=== PATIENT | female | born 1980 | race Caucasian/White ===

== ENCOUNTER 2017-06-29 18:29 | Emergency (ER) | payer BC, MEDICAID, SELFPAY ==
[2017-06-29 18:50] VITALS: BP 91/65; PULSE 65; RESP 18; TEMP 36.9; O2SAT 97; BMI 24.3
--- NOTE | 2017-06-29 19:07 | CT_ITS ---
CT abdomen pelvis wo con CLINICAL INDICATION: Right flank pain, history of kidney stones ITS.REASON: kidney stone ORDERING PHYSICIAN: Negro Phelan MD PATIENT AGE: 36 years COMPARISON: 10/06/2015 TECHNIQUE: Axial images obtained with sagittal and coronal reformats. PROCEDURE: Oral Contrast: None IV Contrast: None . FINDINGS: There is no acute finding in the lower chest. There is a subpleural 4 mm nodular opacity in the left lower lobe nonspecific too small to characterize. Abdomen: The liver, gallbladder, spleen, adrenal glands, and pancreas are unremarkable. No hydronephrosis or obstructing renal or ureteral calculi evident. No urinary bladder calculi. Multiple pelvic phleboliths are present. No intestinal obstruction or free air. Pelvis: No evidence of appendicitis or diverticulitis. No pelvic mass or abnormal fluid collection or focal inflammatory change. Gas is present in the vagina from tampon . No acute bony anomalies. IMPRESSION: No acute abdominal or pelvic findings.
--- NOTE | 2017-06-29 19:17 | HMH.EDGENADL ---
ED Disposition Clinical Impression: Flank pain Disposition: Home, Self-Care Condition on Discharge: Good Instructions: DI for Flank Pain Prescriptions: Hydrocod/Acet 5/325 mg [[place] 5/325mg tablet] 1 each PO Q6HP PRN #10 tab PRN Reason: Moderate Pain Ondansetron [Zofran 4mg ODT] 4 mg PO Q6H PRN #10 tab.rapdis PRN Reason: Moderate Pain Referrals: Marine Pate APRN [Primary Care Provider] - - Critical Care Critical Care Time: No Attestation: On 06/29/17, the high probability of a clinically significant, sudden or life threatening deterioration of the following system(s) required my full and direct attention, intervention and personal management. The time I documented below is in addition to time spent performing reported procedures but includes the following listed in this critical care notation. Medical Decision Making - Medical Records MR Comment: 2009 scan is come back no acute intra-abdominal abnormality detected. Obstipation is passing a small stone she has got trace blood in her urine, states it feels like previous kidney stones Vital Signs: 06/29/17 18:50 06/29/17 19:30 Temperature 98.5 F Temperature Source Oral Pulse Rate [Left Radial] 65 71 Respiratory Rate 18 Blood Pressure [Left Arm] 91/65 97/65 Blood Pressure Mean [Left Arm] 73 75 Blood Pressure Source [Left Arm] Automatic Cuff Automatic Cuff Blood Pressure Position [Left Arm] Sitting Sitting 02 Sat by Pulse Oximetry 97 100 Oxygen Delivery Method Room Air - Lab Data Lab Results 06/29/17 19:11: Urine Color Yellow, Urine Appearance Sl cloudy, Urine pH 7.5, Ur Specific [place] 1.020, Urine Protein Negative, Urine Glucose (UA) Negative, Urine Ketones Negative, Urine Blood Trace-i, Urine Nitrate Negative, Urine Bilirubin Negative, Urine Urobilinogen 1.0, Ur Leukocyte Esterase Negative, Urine RBC 3-5, Urine WBC 3-5, Ur Squamous Epith Cells 10-20, Amorphous Sediment 2+, Urine Bacteria 3+, Urine Mucus 4+ 06/29/17 19:11: Urine HCG, Qual Negative 06/29/17 19:20: WBC 8.2, RBC 4.42, Hgb 12.7, Hct 39.5, MCV 89.3, MCH 28.8, MCHC 32.2, RDW 12.5, Plt Count 240, MPV 8.2, Neut % (Auto) 54.1, Lymph % (Auto) 36.0, [place] % (Auto) 6.2, Eos % (Auto) 3.0, Baso % (Auto) 0.7, Neut # (Auto) 4.4, Lymph # (Auto) 2.9, [place] # (Auto) 0.5, Eos # (Auto) 0.3, Baso # (Auto) 0.1 06/29/17 19:20: Sodium 139, Potassium 3.4 L, Chloride 104, Carbon Dioxide 27, Anion Gap 11.4, BUN 13, Creatinine 0.66, Estimated Creat Clear 135, Estimated GFR 101, Est GFR ( Amer) 123, Glucose 82, Calcium 8.6, Total Bilirubin 0.2, AST 13 L, ALT 26, Alkaline Phosphatase 61, Total Protein 7.3, Albumin 3.9, Globulin 3.4 H, Albumin/Globulin Ratio 1.1 Result diagrams: 06/29/17 19:20 06/29/17 19:20 Orders (Tests/Meds): ED MEDICATIONS Generic Name Dose Route Start Last Admin Trade Name Freq PRN Reason Stop Dose Admin Sodium Chloride 1,000 mls @ 999 mls/hr 06/29/17 19:30 06/29/17 19:31 Sod Chlor 0.9% 1000ml Bag IV 06/29/17 20:30 999 mls/hr .Q1H1M KVNG Administration Discontinued Medications Generic Name Dose Route Start Last Admin Trade Name Freq PRN Reason Stop Dose Admin Morphine Sulfate 4 mg 06/29/17 19:19 06/29/17 19:31 Morphine 4mg/Ml Syringe IV 06/29/17 19:20 4 mg ONCE ONE Administration Ondansetron HCl 4 mg 06/29/17 19:19 06/29/17 19:31 Zofran 4mg/2ml Vial IV 06/29/17 19:20 4 mg ONCE ONE Administration ORDERS Category Date Time Status CT abdomen pelvis wo con Stat Cat Scan 06/29/17 19:07 Taken Urine Culture Stat Micro 06/29/17 19:11 Received - Yasir Inquiry Pt receiving controlled substance: Yes Yasir was queried for this patient: Yes ([id number]) Reference #:: [id number] Risks and benefits of using a controlled substance: were discussed with pt by me General Adult HPI - General Chief complaint: PAIN Stated complaint: kidney stone Mode of Arrival: Ambulatory Limitations: No Limitations Description of Sympto
[2017-06-29 19:18] LABS: Microscopic, Urine URINE MICROSCOPIC (MICROSCOPIC)
[2017-06-29 19:20] LABS: Appearance,Urine SL CLOUDY (Clear); Bilirubin,Urine Negative (Negative); Blood, Urine TRACE-I (Negative); Color,Urine YELLOW (Yellow); Glucose,Urine (UA) Negative (Negative); Ketones,Urine Negative (Negative); Leukocyte Esterase,Urine Negative (Negative); Nitrate,Urine Negative (Negative); PH,Urine 7.5 (5.0-8.5); Protein,Urine Negative (Negative)
--- NOTE | 2017-06-29 19:20 | ED_ITS ---
ED Disposition Clinical Impression: Flank pain Disposition: Home, Self-Care Condition on Discharge: Good Instructions: DI for Flank Pain Prescriptions: Hydrocod/Acet 5/325 mg [[place] 5/325mg tablet] 1 each PO Q6HP PRN #10 tab PRN Reason: Moderate Pain Ondansetron [Zofran 4mg ODT] 4 mg PO Q6H PRN #10 tab.rapdis PRN Reason: Moderate Pain Referrals: Marine Pate APRN [Primary Care Provider] - - Critical Care Critical Care Time: No Attestation: On 06/29/17, the high probability of a clinically significant, sudden or life threatening deterioration of the following system(s) required my full and direct attention, intervention and personal management. The time I documented below is in addition to time spent performing reported procedures but includes the following listed in this critical care notation. Medical Decision Making - Medical Records MR Comment: 2009 scan is come back no acute intra-abdominal abnormality detected. Obstipation is passing a small stone she has got trace blood in her urine, states it feels like previous kidney stones Vital Signs: 06/29/17 18:50 06/29/17 19:30 Temperature 98.5 F Temperature Source Oral Pulse Rate [Left Radial] 65 71 Respiratory Rate 18 Blood Pressure [Left Arm] 91/65 97/65 Blood Pressure Mean [Left Arm] 73 75 Blood Pressure Source [Left Arm] Automatic Cuff Automatic Cuff Blood Pressure Position [Left Arm] Sitting Sitting 02 Sat by Pulse Oximetry 97 100 Oxygen Delivery Method Room Air - Lab Data Lab Results 06/29/17 19:11: Urine Color Yellow, Urine Appearance Sl cloudy, Urine pH 7.5, Ur Specific [place] 1.020, Urine Protein Negative, Urine Glucose (UA) Negative, Urine Ketones Negative, Urine Blood Trace-i, Urine Nitrate Negative, Urine Bilirubin Negative, Urine Urobilinogen 1.0, Ur Leukocyte Esterase Negative, Urine RBC 3-5, Urine WBC 3-5, Ur Squamous Epith Cells 10-20, Amorphous Sediment 2+, Urine Bacteria 3+, Urine Mucus 4+ 06/29/17 19:11: Urine HCG, Qual Negative 06/29/17 19:20: WBC 8.2, RBC 4.42, Hgb 12.7, Hct 39.5, MCV 89.3, MCH 28.8, MCHC 32.2, RDW 12.5, Plt Count 240, MPV 8.2, Neut % (Auto) 54.1, Lymph % (Auto) 36.0 , [place] % (Auto) 6.2, Eos % (Auto) 3.0, Baso % (Auto) 0.7, Neut # (Auto) 4.4, Lymph # (Auto) 2.9, [place] # (Auto) 0.5, Eos # (Auto) 0.3, Baso # (Auto) 0.1 06/29/17 19:20: Sodium 139, Potassium 3.4 L, Chloride 104, Carbon Dioxide 27, Anion Gap 11.4, BUN 13, Creatinine 0.66, Estimated Creat Clear 135, Estimated GFR 101, Est GFR ( Amer) 123, Glucose 82, Calcium 8.6, Total Bilirubin 0.2, AST 13 L, ALT 26, Alkaline Phosphatase 61, Total Protein 7.3, Albumin 3.9, Globulin 3.4 H, Albumin/Globulin Ratio 1.1 Result diagrams: 06/29/17 19:20 06/29/17 19:20 Orders (Tests/Meds): ED MEDICATIONS Generic Name Dose Route Start Last Admin Trade Name Freq PRN Reason Stop Dose Admin Sodium Chloride 1,000 mls @ 999 mls/hr 06/29/17 19:30 06/29/17 19:31 Sod Chlor 0.9% 1000ml Bag IV 06/29/17 20:30 999 mls/hr .Q1H1M KVNG Administration Discontinued Medications Generic Name Dose Route Start Last Admin Trade Name Freq PRN Reason Stop Dose Admin Morphine Sulfate 4 mg 06/29/17 19:19 06/29/17 19:31 Morphine 4mg/Ml Syringe IV 06/29/17 19:20 4 mg ONCE ONE Administration Ondansetron HCl 4 mg 06/29/17 19:19 06/29/17 19:31 Zofran 4mg/2ml Vial IV 06/29/17 19:20 4 mg
[2017-06-29 19:30] VITALS: BP 97/65; PULSE 71; O2SAT 100
[2017-06-29 19:34] LABS: Basophils # 0.1 K/mm3 (0-0.2); Basophils % 0.7 % (0.1-2.0); Eosinophils # 0.3 K/mm3 (0.0-0.4); Hematocrit 39.5 % (37.0-47.0); Hemoglobin 12.7 g/dL (12.2-16.2); Lymphocytes # 2.9 K/mm3 (0.7-4.5); Mean Corpuscular HGB Conc 32.2 g/dL (31.8-35.4); Mean Corpuscular Hemoglobin 28.8 pg (27.0-31.2); Mean Corpuscular Volume 89.3 fl (81-99); Mean Platelet Volume 8.2 fl (7.4-10.4); Monocytes # 0.5 K/mm3 (0.1-1.0); Monocytes % 6.2 % (1.7-9.3); Neutrophils # 4.4 K/mm3 (1.8-7.8); Neutrophils % 54.1 % (37.0-80.0); Platelet Count 240 K/mm3 (142-424); Red Blood Count 4.42 M/mm3 (4.20-5.40); Red Cell Distribution Width 12.5 % (11.5-17.5); White Blood Count 8.2 K/mm3 (4.8-10.8)
[2017-06-29 19:35] LABS: Urine Pregnancy, HCG Qual. Negative (Negative)
[2017-06-29 19:47] LABS: Amorphous Sediment,Urine 2+ /lpf; Bacteria,Urine 3+ /lpf; Mucus,Urine 4+ /lpf
[2017-06-29 19:52] LABS: Alanine Aminotransferase 26 U/L (12-78); Albumin Level 3.9 gm/dL (3.4-5.0); Albumin/Globulin Ratio 1.1 (1.1-1.8); Alkaline Phosphatase 61 U/L (46-116); Anion Gap 11.4 mEq/L (5-15); Aspartate Amino Transferase 13 U/L (15-37); Bilirubin,Total 0.2 mg/dL (0.2-1.0); Blood Urea Nitrogen 13 mg/dL (7-18); Calcium 8.6 mg/dL (8.5-10.1); Carbon Dioxide 27 mmol/L (21.0-32.0); Chloride 104 mmol/L (98-107); Creatinine Clearance Estimated 135 mL/min (0-300); Creatinine,Serum 0.66 mg/dL (0.55-1.02); Estimated Glomerular Filt Rate 101 ml/min (>60); GFR (African American) 123 ML/MIN (>60); Globulin 3.4 gm/dl (1.3-3.2); Glucose 82 mg/dL (74-106); Potassium 3.4 mmoL/L (3.5-5.1); Sodium 139 mmol/L (136-145); Total Protein,Serum 7.3 gm/dL (6.4-8.2)
[2017-06-29 20:25] VITALS: BP 137/73; PULSE 85; RESP 16; TEMP 37.2; O2SAT 99
== END 2017-06-29 20:34 | disposition home or self-care (01) ==
PROVIDERS: Emergency Provider Emergency Medicine; Family Provider Family Medicine; PCP Nurse Practitioner
DX: R10.31 Right lower quadrant pain (principal); Z87.442 Personal history of urinary calculi; F17.210 Nicotine dependence, cigarettes, uncomplicated; Z88.0 Allergy status to penicillin; Z88.6 Allergy status to analgesic agent
CPT/HCPCS: 74176; 80053; 81001; 81025; 85025; 87086; 87088; 87186; 96365; 96375; 99282; J2405

== ENCOUNTER → 2017-10-20 08:10 | Outpatient (CLI) | payer BC, MEDICAID, SELFPAY ==
--- NOTE | 2017-10-20 08:13 | US_ITS ---
US abdomen limited History:Right upper quadrant pain Ordering Physician:Marine Pate Patient Age: 37 years Comparison:None Findings: Pancreas:Unremarkable. No obvious mass or abnormal fluid collection. No ductal dilatation Liver:No focal liver lesions demonstrated. Homogeneous echogenicity. No intrahepatic biliary ductal dilatation evident Right Kidney:Unremarkable. Normal size and echogenicity. No hydronephrosis Gallbladder:No gallstones, gallbladder wall thickening, pericholecystic fluid, or biliary dilatation. Impression:Negative gallbladder/right upper quadrant ultrasound
== END ==
PROVIDERS: Family Provider Family Medicine; PCP Nurse Practitioner; Visit Provider Nurse Practitioner
DX: R10.9 Unspecified abdominal pain (principal)
CPT/HCPCS: 76705

== ENCOUNTER → 2017-11-06 10:13 | Outpatient (CLI) | payer BC, MEDICAID, SELFPAY ==
--- NOTE | 2017-11-06 10:18 | NM_ITS ---
HEPATOBILIARY SCAN WITH FATTY MEAL/ENSURE ORDERING PHYSICIAN : Smith Ash PATIENT AGE: 37 years GENDER: Female HISTORY: Right upper quadrant pain and nausea Following 8.27 millicuries Tc Choletec, images of the RUQ were obtained. There is prompt uptake of radionuclide by the liver which is grossly unremarkable. Small bowel is visualized. This initial portion of the study is normal. The gallbladder was allowed to fill out to 60 minutes. Fatty meal/1 can of ensure over administered, with then imaging performed over 60 minutes minutesThereafter. The obtain data was analyzed and reveals a 85% % gallbladder ejection fraction (normal greater than 50%; borderline 35-50%). This reflects normal value. Adequate contraction. . Visual inspection which supports that there is adequate contraction of the gallbladde certainly over 50% r. IMPRESSION: Normal functioning gallbladder. 85 % gallbladder ejection fraction, following fatty meal. No pain with fatty meal.
== END ==
PROVIDERS: Family Provider Family Medicine; PCP Nurse Practitioner; Visit Provider Internal Medicine
DX: R10.11 Right upper quadrant pain (principal)
CPT/HCPCS: 78227; A9537

== ENCOUNTER → 2019-10-20 16:14 | Outpatient (CLI) | payer BC, SELFPAY ==
--- NOTE | 2019-10-20 16:20 | XR_ITS ---
PROCEDURE: XR CHEST 2V CLINICAL HISTORY: COUGH, TOBACCO ABUSE, SHORTNESS OF BREATH COMPARISON: CXR CHEST(2 VIEWS-NOT PORTABLE) from 08/23/2012 FINDINGS: The cardiomediastinal silhouette and pulmonary vascularity are within normal limits. The lungs are clear without infiltrates, suspicious nodules, or pleural effusions. There is slight increased density in the right CP angle. This could be due to attenuation from overlying soft tissues versus small effusion No acute bony abnormalities. IMPRESSION: No definite acute finding. Minimal increased density right CP angle which could be due to small effusion versus overlying soft tissue attenuation Dictated by: Elliott Adame MD 10/20/2019 22:27 Electronically signed by Elliott Adame MD in [place] 10/20/2019 22:27
== END ==
PROVIDERS: PCP Nurse Practitioner Family; Visit Provider Nurse Practitioner Family
DX: R06.02 Shortness of breath (principal); R05 Cough; Z72.0 Tobacco use
CPT/HCPCS: 71046

== ENCOUNTER → 2019-11-02 09:58 | Outpatient (CLI) | payer BC, SELFPAY ==
[2019-11-02 10:30] VITALS: PULSE 77; PULSE 80
== END ==
PROVIDERS: PCP Nurse Practitioner Family; Visit Provider Nurse Practitioner Family
DX: R06.02 Shortness of breath (principal); R05 Cough; Z72.0 Tobacco use
CPT/HCPCS: 94060; 94640

== ENCOUNTER 2020-01-08 14:23 | Emergency (ER) | payer BC, SELFPAY ==
--- NOTE | 2020-01-08 14:37 | XR_ITS ---
PROCEDURE: XR CHEST 2V Referring Doctor: Kanwal Ramirez Patient Age:39Y CLINICAL HISTORY: cough cough, pt has mild copd, nausea and diarrhea started thursday , pt had ablation done 2018 COMPARISON: 10/20/2019 CXR FINDINGS: PA and lateral chest performed today and compared to 10/20/2019 nothing definitely acute with no significant change since 10/20/2019 the cardiomediastinal silhouette and pulmonary vascularity are within normal limits. The lungs are clear without infiltrates, suspicious nodules, or pleural effusions. No acute bony abnormalities. IMPRESSION: Stable chest with nothing definitely acute. Lungs clear No significant change since 10/20/2019 Dictated by: Giuseppe Cervantes MD 01/08/2020 15:00 Giuseppe Cervantes MD in [place] 01/08/2020 15:00
[2020-01-08 14:45] VITALS: BP 108/69; PULSE 95; RESP 19; TEMP 37.2; O2SAT 94; BMI 27.6
--- NOTE | 2020-01-08 14:59 | HMH.EDUTC ---
[facility] [place] Impression: Nausea vomiting and diarrhea URI (upper respiratory infection) Qualifiers: URI type: unspecified URI Qualified Code(s): J06.9 - Acute upper respiratory infection, unspecified Disposition: Home, Self-Care Condition on Discharge: Good Instructions: DI for Vomiting -- Adult, Nausea and Vomiting-Adult, Diarrhea, Preventing the Spread of Coronavirus Discharge Instructions Additional Instructions: *Monitor Temp, Over the counter Motrin or Tylenol as directed/as needed Tylenol every 4 hours and Motrin every 6 hours (as long as your family doctor has told you that you can take it) for fever or pain. and straight to ER if unable to lower temp less than 101.0 after medication given *Warm salt water gargles may help to soothe the throat *Throat Lozenges *Warm fluids like tea with honey may help to soothe the throat *Sleep elevated *Humidifier/Vaporizer *Flonase 2 sprays in each nostril daily but be aware that it may take 2-3 days before you notice improvement *You was give test for COVID 19 and was given handout for instructions for Self Isolation and Self Quarantine make sure to follow closely Call back to the [facility] in the next 48-72 hours to see if your results are back and if they are positive or negative until you get those results make sure to stay out of the public and away from other people Your throat swab was sent for culture. Those results are typically sent to your primary care. Be sure to follow up in 2-3 days with your family doctor/primary care physician if no improvement so they can review those result and treat if necessary. If you don?t have a primary care doctor, I recommend you get one but in the mean time, you will have to return to a walk in clinic Follow up IMMEDIATELY for new or worsening symptoms or no Noticeable improvement over the next 48-72 hours. 911 for difficulty breathing or swallowing Prescriptions: Ondansetron [Zofran 4mg ODT] 4 mg PO Q8HP PRN #6 tab.rapdis PRN Reason: Nausea Transmission Status: Pending to [facility] Cefdinir [Omnicef 300mg Capsule] 300 mg PO BID #20 cap Transmission Status: Pending to [facility] Referrals: Ben Dougherty MD [Primary Care Provider] - As needed Forms: Work/School Release Time of Disposition: 15:26 Medical Decision Making - Yasir Inquiry Pt receiving controlled substance: No Yasir was queried for this patient: No Vital Signs: 01/08/20 14:45 Temperature 98.9 F Temperature Source Oral Pulse Rate [Radial] 95 H Respiratory Rate 19 Blood Pressure [Right Arm] 108/69 L Blood Pressure Mean [Right Arm] 82 Blood Pressure Source [Right Arm] Automatic Cuff Blood Pressure Position [Right Arm] Sitting 02 Sat by Pulse Oximetry 94 L Oxygen Delivery Method Room Air - Lab Data Lab results reviewed: Yes: I reviewed the patient's lab results. Lab Results 01/08/20 15:00: Influenza Type A Ag Negative, Influenza Type B Ag Negative 01/08/20 15:00: Strep Scn Rapid Clinic Negative Orders (Tests/Meds): ORDERS Category Date Time Status Coronavirus [SARS-CoV-2, [place] ([place])] Stat Lab 01/08/20 14:45 Received Strep Screen Confirmation Stat Micro 01/08/20 15:00 Received Medical Decision Narrative: Patient states that she is allergic to PCN but she has taken Cefdinir before without reactions or complications [facility] [place] - General Stated complaint: virgie vomiting cough fev Time Seen by Provider: 01/08/20 14:59 Mode of Arrival: Ambulatory Source of Information: Patient Limitations: No Limitations Description of Symptoms (Recalled from Triage Doc. by RN): vomiting and diarrhea since thursday, headache, sob, weakness HEENT Symptoms (Recalled from RN notes): Yes Resp Symptoms (Recalled from RN notes): No Skin Symptoms (Recalled from RN notes): No MS Symptoms (Recalled from RN notes): No Functional Status (Recalled from RN notes): wnl - History of Present Illness Provider Complaint: Patient states that s
[2020-01-08 15:17] LABS: UTC Influenza A Antigen Negative (Negative); UTC Strep Screen (Rapid) Negative (Negative)
[2020-01-08 15:18] LABS: UTC Influenza B Antigen Negative (Negative)
[2020-01-08 15:34] VITALS: BP 108/69; PULSE 95; RESP 19; TEMP 37.2; O2SAT 94
[2020-01-09 09:55] LABS: Covid-19 Nasal PCR Sendout UK NOT DETECTED
== END 2020-01-08 15:36 | disposition home or self-care (01) ==
PROVIDERS: Emergency Provider Nurse Practitioner; PCP Family Medicine
DX: J06.9 Acute upper respiratory infection, unspecified (principal); F41.8 Other specified anxiety disorders; Z87.442 Personal history of urinary calculi; F17.210 Nicotine dependence, cigarettes, uncomplicated
CPT/HCPCS: 71046; 87804; 87880; 99202; U0003

== ENCOUNTER → 2020-02-08 16:29 | Outpatient (CLI) | payer BC, SELFPAY ==
--- NOTE | 2020-02-08 16:33 | XR_ITS ---
PROCEDURE: XR FOOT WT BEARING LT 3V CLINICAL INDICATION: pain COMPARISON: No exams were available for comparison FINDINGS: No fracture or dislocation. No lytic or blastic change. There is normal mineralization. The joint spaces are well-preserved. No significant degenerative/arthritic changes. No erosive changes evident. Other findings:None. IMPRESSION: No acute findings. Dictated by: Elliott Adame MD 02/08/2020 17:46 Elliott Adame MD in [place] 02/08/2020 17:46
--- NOTE | 2020-02-08 16:33 | XR_ITS ---
PROCEDURE: XR FOOT WT BEARING RT 3V CLINICAL INDICATION: pain COMPARISON: No exams were available for comparison FINDINGS: No fracture or dislocation. No lytic or blastic change. There is normal mineralization. The joint spaces are well-preserved. No significant degenerative/arthritic changes. No erosive changes evident. Other findings:None. IMPRESSION: No acute findings. Dictated by: Elliott Adame MD 02/08/2020 17:46 Elliott Adame MD in [place] 02/08/2020 17:46
== END ==
PROVIDERS: PCP Nurse Practitioner Family; Visit Provider Podiatrist
DX: M79.672 Pain in left foot (principal); M79.671 Pain in right foot
CPT/HCPCS: 73630

== ENCOUNTER 2020-02-11 14:29 | Emergency (ER) | payer BC, SELFPAY ==
[2020-02-11 14:30] VITALS: BMI 28.0
--- NOTE | 2020-02-11 14:31 | HMH.EDGENADL ---
ED Disposition Clinical Impression: Urolithiasis Qualifiers: Urinary calculus location: ureter Qualified Code(s): N20.1 - Calculus of ureter Abdominal pain Qualifiers: Abdominal location: right lower quadrant Qualified Code(s): R10.31 - Right lower quadrant pain Disposition: Home, Self-Care Condition on Discharge: Good Instructions: Kidney Stones -- Adult Additional Instructions: Take medications as prescribed. Follow-up with your PCP. If you have any new, changing, worsening, or concerning symptoms, come back to the emergency department. Prescriptions: Tamsulosin HCl [Flomax 0.4mg capsule] 0.4 mg PO HS 5 Days #5 cap Prescription Printed Cefdinir [Omnicef 300mg Capsule] 300 mg PO BID 7 Days #14 cap Prescription Printed Ondansetron [Zofran 4mg ODT] 4 mg PO TID PRN 3 Days #9 tab PRN Reason: Vomiting Prescription Printed Referrals: Lidia Rice APRN [Primary Care Provider] - Time of Disposition: 17:28 - Critical Care Critical Care Time: No Attestation: On 02/11/20, the high probability of a clinically significant, sudden or life threatening deterioration of the following system(s) required my full and direct attention, intervention and personal management. The time I documented below is in addition to time spent performing reported procedures but includes the following listed in this critical care notation. Medical Decision Making - Medical Records Medical records reviewed: Yes: I reviewed the patient's medical records. MR Comment: 39-year-old female presents the emergency department with with right flank and right lower quadrant pain. She arrives the ED hemodynamically stable, with reassuring vital signs, and looks well on exam. She has tenderness in the right lower quadrant, which is concerning for appendicitis, also could be a kidney stone or UTI. Will get labs and CT, treat with fluids and reassess. On reassessment, patient remains well. She states she has had relief of her pain since arrival here. CT of the abdomen pelvis read by radiology and personally reviewed, appendix does not show any signs of inflammation, no other acute findings so most likely stone. We will send her home with treatment for this and advise that she follow-up with her PCP. She was given strict return precautions and discharge instructions including follow-up for further evaluation and treatment and verbalized understanding and agreement with the plan. Safe to discharge. - Yasir Inquiry Pt receiving controlled substance: No Vital Signs: 02/11/20 14:56 02/11/20 15:13 02/11/20 16:47 Temperature 98 F Temperature Source Oral Pulse Rate [Left Radial] 110 H 92 H 76 Respiratory Rate 16 20 Blood Pressure [Right Arm] 119/73 101/58 L 118/64 Blood Pressure Mean [Right Arm] 88 72 82 Blood Pressure Source [Right Arm] Automatic Cuff Blood Pressure Position [Right Arm] Sitting Sitting Sitting 02 Sat by Pulse Oximetry 97 93 L Oxygen Delivery Method Room Air - Lab Data Lab Results 02/11/20 14:15: WBC 13.5 H, RBC 4.57, Hgb 13.9, Hct 40.9, MCV 89.6, MCH 30.4, MCHC 33.9, RDW 13.8, Plt Count 267, MPV 9.0, Neut % (Auto) 75.5, Lymph % (Auto) 18.0, [place] % (Auto) 4.8, Eos % (Auto) 1.1, Baso % (Auto) 0.7, Neut # (Auto) 10.2 H, Lymph # (Auto) 2.4, [place] # (Auto) 0.6, Eos # (Auto) 0.2, Baso # (Auto) 0.1 02/11/20 14:15: Sodium 138, Potassium 3.8, Chloride 104, Carbon Dioxide 25, Anion Gap 12.8, BUN 15, Creatinine 0.70, Estimated Creat Clear 151, Estimated GFR 93, Est GFR ( Amer) 113, Glucose 125 H, Calcium 9.6, Total Bilirubin 0.6, AST 40 H, ALT 35, Alkaline Phosphatase 76, Total Protein 7.5, Albumin 4.4, Globulin 3.1, Albumin/Globulin Ratio 1.4 02/11/20 14:15: HCG, Quant < 2 02/11/20 14:15: Serum HCG, Qual Negative 02/11/20 16:59: Urine Color Yellow, Urine Appearance Sl cloudy, Urine pH 6.5, Ur Specific [place] 1.015, Urine Protein Negative, Urine Glucose (UA) Negative, Urine Ketones Negative, Urine Blood 1+, Urine Nit
[2020-02-11 14:56] VITALS: BP 119/73; PULSE 110; RESP 16; TEMP 36.6; O2SAT 97; BMI 28.8
--- NOTE | 2020-02-11 14:59 | CT_ITS ---
PROCEDURE: CT ABDOMEN PELVIS W CON CLINICAL INDICATION: abd and flank pain, tender in RLQ Right-sided flank pain with nausea, right lower quadrant tenderness COMPARISON: CT ABDPELW/O CT ABD PELVIS W/O CONTRAST from 03/30/[address] abdomen pelvis wo con from 09/29/2017 TECHNIQUE: IV Contrast: 75ML OPTIRAY 350 Oral Contrast None Axial images obtained with sagittal and coronal reformats. All CT scans at the facility use one or more dose reduction, viz: automated exposure control, ma/kV adjustment per patient size (including targeted exams where dose is matched to indication, i.e. head), or iterative reconstruction technique. FINDINGS: LOWER THORAX: There are dependent changes in the lung bases. ABDOMEN & PELVIS: The liver, spleen, adrenal glands, pancreas, gallbladder, and kidneys have an unremarkable appearance. Contrast is present in the urinary collecting system and would obscure an underlying renal stone. No hydronephrosis. No obvious ureteral calculi. There are few small mesenteric lymph nodes in the epigastric region. No intestinal obstruction or free air. No evidence of appendicitis or diverticulitis intestinal obstruction or free air. The uterine cervix is prominent. Correlation with physical exam suggested. No pelvic fluid collection or adenopathy. No acute bony findings. IMPRESSION: No acute abdominal or pelvic findings. Prominent cervix which requires correlation with physical exam. Dictated by: Elliott Adame MD 02/12/2020 05:47 Elliott Adame MD in [place] 02/12/2020 05:47
[2020-02-11 15:13] VITALS: BP 101/58; PULSE 92
[2020-02-11 15:44] LABS: Alanine Aminotransferase 35 U/L (12-78); Albumin Level 4.4 g/dl (3.5-5.0); Albumin/Globulin Ratio 1.4 (1.1-1.8); Alkaline Phosphatase 76 U/L (38-126); Anion Gap 12.8 mEq/L (5-15); Aspartate Amino Transferase 40 U/L (14-36); Bilirubin,Total 0.6 mg/dl (0.2-1.3); Blood Urea Nitrogen 15 mg/dl (7-17); Calcium 9.6 mg/dl (8.4-10.2); Carbon Dioxide 25 mmol/L (22.0-30.0); Chloride 104 mmol/L (98-107); Creatinine Clearance Estimated 151 mL/min (50-200); Estimated Glomerular Filt Rate 93 ml/min (>60); GFR (African American) 113 ML/MIN (>60); Globulin 3.1 g/dL (1.3-3.2); Glucose 125 mg/dl (74-100); Potassium 3.8 mmoL/L (3.5-5.1); Sodium 138 mmol/L (136-145); Total Protein,Serum 7.5 g/dl (6.3-8.2)
[2020-02-11 15:47] LABS: Basophils # 0.1 K/mm3 (0-0.2); Basophils % 0.7 % (0.1-2.0); Eosinophils # 0.2 K/mm3 (0.0-0.4); Eosinophils % 1.1 % (0.1-12.0); Hematocrit 40.9 % (37.0-47.0); Hemoglobin 13.9 g/dL (12.2-16.2); Lymphocytes # 2.4 K/mm3 (0.7-4.5); Mean Corpuscular HGB Conc 33.9 g/dL (31.8-35.4); Mean Corpuscular Hemoglobin 30.4 pg (27.0-31.2); Mean Corpuscular Volume 89.6 fl (81-99); Monocytes # 0.6 K/mm3 (0.1-1.0); Monocytes % 4.8 % (1.7-9.3); Neutrophils # 10.2 K/mm3 (1.8-7.8); Neutrophils % 75.5 % (37.0-80.0); Platelet Count 267 K/mm3 (142-424); Red Blood Count 4.57 M/mm3 (4.20-5.40); Red Cell Distribution Width 13.8 % (11.5-17.5); White Blood Count 13.5 K/mm3 (4.8-10.8)
[2020-02-11 16:02] LABS: HCG,Quantitative < 2 mIU/ml (0-5.42)
[2020-02-11 16:17] LABS: HCG Qualitative, Serum Negative (Negative)
[2020-02-11 16:47] VITALS: BP 118/64; PULSE 76; RESP 20; O2SAT 93
[2020-02-11 17:10] LABS: Appearance,Urine SL CLOUDY (Clear); Bilirubin,Urine Negative (Negative); Blood, Urine 1+ (Negative); Color,Urine YELLOW (Yellow); Glucose,Urine (UA) Negative (Negative); Ketones,Urine Negative (Negative); Leukocyte Esterase,Urine Negative (Negative); Nitrate,Urine POSITIVE (Negative); PH,Urine 6.5 (5.0-8.5); Protein,Urine Negative (Negative); Specific Gravity, Urine 1.015 (1.005-1.030); Urobilinogen,Urine 0.2 EU/dl (0.2)
[2020-02-11 17:23] LABS: Bacteria,Urine 1+ /lpf; Mucus,Urine 1+ /lpf
[2020-02-11 17:38] VITALS: BP 112/64; PULSE 88; RESP 16; TEMP 36.6; O2SAT 98
== END 2020-02-11 17:39 | disposition home or self-care (01) ==
PROVIDERS: Emergency Provider Emergency Medicine; PCP Nurse Practitioner Family
DX: N20.1 Calculus of ureter (principal); F41.8 Other specified anxiety disorders; Z87.442 Personal history of urinary calculi; F17.210 Nicotine dependence, cigarettes, uncomplicated; Z88.0 Allergy status to penicillin; Z88.5 Allergy status to narcotic agent; R73.9 Hyperglycemia, unspecified
CPT/HCPCS: 74177; 80053; 81001; 84702; 84703; 85025; 96365; 96375; 99283; J2405; Q9967

== ENCOUNTER 2020-10-25 17:57 | Emergency (ER) | payer BC, SELFPAY ==
[2020-10-25 18:02] VITALS: BP 107/58; PULSE 75; RESP 16; TEMP 37.1; O2SAT 98; BMI 39.4
[2020-10-25 18:19] VITALS: BP 107/58; PULSE 75; RESP 16; TEMP 37.1; O2SAT 98
--- NOTE | 2020-10-25 18:23 | HMH.EDUTC ---
[facility] [place] Clinical Impression: Otitis media Qualifiers: Otitis media type: suppurative Chronicity: acute Laterality: bilateral Recurrence: non-recurrent Spontaneous tympanic membrane rupture: without spontaneous rupture Qualified Code(s): H66.003 - Acute suppurative otitis media without spontaneous rupture of ear drum, bilateral Disposition: Home, Self-Care Condition on Discharge: Good Instructions: Middle Ear Infection Additional Instructions: Drink plenty of fluids. Take tylenol or ibuprofen for pain or fever. Take the medications as directed. Follow up with your regular doctor. GO TO THE ER FOR ANY WORSENING SYMPTOMS Prescriptions: Ciprofloxacin HCl/Dexameth [Cipro 0.3%-Dex 0.1% Otic Susp 7.5mL] 2 drops EAR-LEFT BID 7 Days #1 bottle Transmission Status: Received by [facility] Cefdinir [Omnicef 300mg Capsule] 300 mg PO BID #20 cap Transmission Status: Received by [facility] predniSONE [Prednisone 20mg Tab] 20 mg PO BID 3 Days #6 tab Transmission Status: Received by [facility] Referrals: Ben Dougherty MD [Primary Care Provider] - Time of Disposition: 18:35 Medical Decision Making - Medical Records Medical records reviewed: No: I reviewed the patient's medical records. - Yasir Inquiry Pt receiving controlled substance: No Vital Signs: 10/25/20 18:02 10/25/20 18:19 Temperature 98.7 F 98.7 F Temperature Source Oral Pulse Rate 75 Pulse Rate [Left] 75 Respiratory Rate 16 16 Blood Pressure 107/58 L Blood Pressure [Right Arm] 107/58 L Blood Pressure Mean [Right Arm] 74 02 Sat by Pulse Oximetry 98 [facility] [place] - General Stated complaint: Left ear pain Time Seen by Provider: 10/25/20 18:24 Mode of Arrival: Ambulatory Source of Information: Patient Limitations: No Limitations Description of Symptoms (Recalled from Triage Doc. by RN): Pt states that she has had left ear pain since yesterday. Pt reports decreased hearing and drainage from left ear and runny nose. HEENT Symptoms (Recalled from RN notes): Yes Resp Symptoms (Recalled from RN notes): No Skin Symptoms (Recalled from RN notes): No MS Symptoms (Recalled from RN notes): No Functional Status (Recalled from RN notes): wnl - History of Present Illness Provider Complaint: She states that for the past 2 weeks she has had left ear pain. She has also had sinus congestion. She has a history of getting ear infections fairly easily. - Related Data Home Medications Medication Instructions Recorded Confirmed Fluoxetine HCl [Prozac 20mg 60 mg PO DAILY 06/29/17 05/22/20 Capsule] Previous Rx's Medication Instructions Recorded diclofenac sodium 1 % topical gel 4 g TOPICAL QID PRN #30 g 02/14/20 meloxicam 7.5 mg tablet 7.5 mg PO ONCE #30 tab 02/14/20 Cefdinir [Omnicef 300mg Capsule] 300 mg PO BID #20 cap 10/25/20 Ciprofloxacin HCl/Dexameth [Cipro 2 drops EAR-LEFT BID 7 Days #1 10/25/20 0.3%-Dex 0.1% Otic Susp 7.5mL] bottle predniSONE [Prednisone 20mg 20 mg PO BID 3 Days #6 tab 10/25/20 Tab] Allergies Allergy/AdvReac Type Severity Reaction Status Date / Time codeine Allergy Verified 10/25/20 18:18 Penicillins Allergy Verified 10/25/20 18:18 - Worker's Comp Is this a Worker's Comp case?: No [facility] History - Hepatitis A Screen Drug use history?: No High risk sexual behaviors?: No History of sexually transmitted infection?: No Currently employed?: 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 I have reviewed the patient's past medical history: Yes Medical History: Reports:: Anxiety, Chronic Obstructive Pulmonary Disease (COPD), Depression, Kidney Stones Denies:: Cancer, Diabetes Mellitus Type 1, Diabetes Mellitus Type 2, Hypertension, MRSA, Seizures Other Medical History: Denies: Blood Transfusion Reaction Laterality Cases: R
== END 2020-10-25 18:36 | disposition home or self-care (01) ==
PROVIDERS: Emergency Provider Nurse Practitioner Family; PCP Family Medicine
DX: H66.003 Acute suppurative otitis media without spontaneous rupture of ear drum, bilateral (principal); F41.8 Other specified anxiety disorders; J44.9 Chronic obstructive pulmonary disease, unspecified; Z87.442 Personal history of urinary calculi; F17.210 Nicotine dependence, cigarettes, uncomplicated
CPT/HCPCS: 99202; G0463

== ENCOUNTER 2020-12-24 15:11 | Emergency (ER) | payer BC, SELFPAY ==
[2020-12-24 15:12] VITALS: BP 113/46; PULSE 87; RESP 18; TEMP 36.8; O2SAT 97; BMI 28.8
--- NOTE | 2020-12-24 15:17 | HMH.EDABDPAI ---
ED Disposition Clinical Impression: Cyst of ovary, right Disposition: Home, Self-Care Condition on Discharge: Good Instructions: DI for Acute Abdominal Pain, DI for Ovarian Cyst Additional Instructions: Take [id number] Tylenol as needed in addition to the prescription I have written for you today. I recommend that you follow-up with an crm administrator in the next 6 weeks to have an ultrasound performed to ensure resolution of the ovarian cyst found today. Return to the emergency department if you feel worse in any way. Prescriptions: Ketorolac Tromethamine [Toradol 10mg tablet] 10 mg PO Q6HP PRN #8 tab MDD 40mg/day PRN Reason: Pain Transmission Status: Pending to [facility] Referrals: Ben Mcnair MD [Primary Care Provider] - - Critical Care Critical Care Time: No Attestation: On 12/24/20, the high probability of a clinically significant, sudden or life threatening deterioration of the following system(s) required my full and direct attention, intervention and personal management. The time I documented below is in addition to time spent performing reported procedures but includes the following listed in this critical care notation. Medical Decision Making - Medical Records Medical records reviewed: Yes: I reviewed the patient's medical records. - Yasir Inquiry Pt receiving controlled substance: No Vital Signs: 12/24/20 15:12 Temperature 98.2 F Temperature Source Oral Pulse Rate [Left Radial] 87 Respiratory Rate 18 Blood Pressure [Right Arm] 113/46 L Blood Pressure Mean [Right Arm] 68 Blood Pressure Source [Right Arm] Automatic Cuff Blood Pressure Position [Right Arm] Sitting 02 Sat by Pulse Oximetry 97 Oxygen Delivery Method Room Air - Lab Data Lab results reviewed: Yes: I reviewed the patient's lab results. Lab Results 12/24/20 15:17: Urine Color Yellow, Urine Appearance Cloudy, Urine pH 7.0, Ur Specific Stickney 1.020, Urine Protein Negative, Urine Glucose (UA) Negative, Urine Ketones Negative, Urine Blood Trace-i, Urine Nitrate Negative, Urine Bilirubin Negative, Urine Urobilinogen 0.2, Ur Leukocyte Esterase 2+ A, Urine WBC 20-50, Ur Squamous Epith Cells 20-50, Urine Bacteria 4+ 12/24/20 15:35: WBC 12.0 H, RBC 4.62, Hgb 13.6, Hct 40.2, MCV 86.9, MCH 29.4, MCHC 33.8, RDW 14.4, Plt Count 281, MPV 8.7, Neut % (Auto) 63.7, Lymph % (Auto) 29.0, Power % (Auto) 4.5, Eos % (Auto) 2.0, Baso % (Auto) 0.9, Neut # (Auto) 7.6, Lymph # (Auto) 3.5, Power # (Auto) 0.5, Eos # (Auto) 0.2, Baso # (Auto) 0.1 12/24/20 15:35: Sodium 138, Potassium 3.5, Chloride 105, Carbon Dioxide 24, Anion Gap 12.5, BUN 15, Creatinine 0.80, Estimated Creat Clear 131, Estimated GFR 79, Est GFR ( Amer) 96, Glucose 86, Calcium 9.4, Total Bilirubin 0.2, AST 37 H, ALT 33, Alkaline Phosphatase 89, Total Protein 7.6, Albumin 4.5, Globulin 3.1, Albumin/Globulin Ratio 1.5 Result diagrams: 12/24/20 15:35 12/24/20 15:35 Orders (Tests/Meds): ED MEDICATIONS Generic Name Dose Route Start Last Admin Trade Name Freq PRN Reason Stop Dose Admin Sodium Chloride 1,000 mls @ 999 mls/hr 12/24/20 15:30 12/24/20 15:23 Sod Chlor 0.9% 1000ml Bag IV 12/24/20 16:30 999 mls/hr .Q1H1M KVNG Administration Discontinued Medications Generic Name Dose Route Start Last Admin Trade Name Freq PRN Reason Stop Dose Admin Ketorolac Tromethamine 30 mg 12/24/20 15:19 12/24/20 15:23 Ketorolac 30mg/Ml Vial IV 12/24/20 15:20 30 mg ONCE ONE Administration Ondansetron HCl 4 mg 12/24/20 15:21 12/24/20 15:23 Ondansetron 4mg/2ml Vial IV 12/24/20 15:22 4 mg ONCE ONE Administration ORDERS Category Date Time Status Urine Culture Stat Micro 12/24/20 15:17 Received - CT Data CT Scan: Abdomen, Pelvis Time Received: 16:[address] Reviewed: Yes: I have reviewed the patient's CT results, I have viewed the radiologist's interpretation Preliminary Findings: Abnormal (Right sided renal stones withou
--- NOTE | 2020-12-24 15:18 | CT_ITS ---
PROCEDURE: CT ABDOMEN PELVIS WO CON CLINICAL INDICATION: Rt Flank pain COMPARISON: CT ABDPELWO CT abdomen pelvis wo con from 09/29/[address] ABDOMEN PELVIS W CON from 02/11/2020 TECHNIQUE: Axial images obtained with sagittal and coronal reformats. All CT scans at the facility use one or more dose reduction, viz: automated exposure control, ma/kV adjustment per patient size (including targeted exams where dose is matched to indication, i.e. head), or iterative reconstruction technique. FINDINGS: LOWER THORAX: Atelectatic or fibrotic changes are present in the left lung base. Nodular density is present in the medial aspect of the lingula as seen on the most superior image measuring 5 mm nonspecific. ABDOMEN & PELVIS: 5 mm hypodensity is present in the right hepatic lobe unchanged. 6 mm hypodensity left hepatic lobe slightly more prominent but could be related to the technique. The spleen and adrenal glands are unremarkable as is the pancreas. There is mild thickening of the gallbladder which appears contracted. There are 3 stones along the lower pole of the right kidney measuring up to 3 mm. No ureteral calculi are evident. 2 mm stone is present in the mid polar region of the left kidney. No evidence of appendicitis. No intestinal obstruction or free air. There is a 4.4 x 3.7 cm right adnexal mass. This measures near water density and may represent a prominent right ovarian cyst. IMPRESSION: 1. Bilateral nephrolithiasis. No ureteral calculi. 2. Unremarkable appendix. 3. 4.4 cm cystic mass in the right adnexal region which may represent an ovarian cyst. Pelvic ultrasound may confirm Dictated by: Elliott Adame MD 12/24/2020 16:15 Elliott Adame MD in [place] 12/24/2020 16:15
[2020-12-24 15:20] VITALS: BMI 28.8
[2020-12-24 15:24] LABS: Microscopic, Urine URINE MICROSCOPIC (MICROSCOPIC)
[2020-12-24 15:31] LABS: Appearance,Urine CLOUDY (Clear); Bilirubin,Urine Negative (Negative); Blood, Urine TRACE-I (Negative); Color,Urine YELLOW (Yellow); Glucose,Urine (UA) Negative (Negative); Ketones,Urine Negative (Negative); Leukocyte Esterase,Urine 2+ (Negative); Nitrate,Urine Negative (Negative); Protein,Urine Negative (Negative); Urobilinogen,Urine 0.2 EU/dl (0.2)
[2020-12-24 15:40] LABS: Bacteria,Urine 4+ /lpf; Squamous Epithelial Cell,Urine 20-50 #/hpf (0-5); WBC,Urine 20-50 #/hpf (0-3)
[2020-12-24 15:55] LABS: Basophils # 0.1 K/mm3 (0-0.2); Basophils % 0.9 % (0.1-2.0); Chloride 105 mmol/L (98-107); Eosinophils # 0.2 K/mm3 (0.0-0.4); Hematocrit 40.2 % (37.0-47.0); Hemoglobin 13.6 g/dL (12.2-16.2); Lymphocytes # 3.5 K/mm3 (0.7-4.5); Mean Corpuscular HGB Conc 33.8 g/dL (31.8-35.4); Mean Corpuscular Hemoglobin 29.4 pg (27.0-31.2); Mean Corpuscular Volume 86.9 fl (81-99); Mean Platelet Volume 8.7 fl (7.4-10.4); Monocytes # 0.5 K/mm3 (0.1-1.0); Monocytes % 4.5 % (1.7-9.3); Neutrophils # 7.6 K/mm3 (1.8-7.8); Neutrophils % 63.7 % (37.0-80.0); Platelet Count 281 K/mm3 (142-424); Potassium 3.5 mmoL/L (3.5-5.1); Red Blood Count 4.62 M/mm3 (4.20-5.40); Red Cell Distribution Width 14.4 % (11.5-17.5); Sodium 138 mmol/L (136-145)
[2020-12-24 15:57] LABS: Alanine Aminotransferase 33 U/L (12-78); Aspartate Amino Transferase 37 U/L (14-36); Blood Urea Nitrogen 15 mg/dl (7-17); Creatinine Clearance Estimated 131 mL/min (50-200); Estimated Glomerular Filt Rate 79 ml/min (>60); GFR (African American) 96 ML/MIN (>60)
[2020-12-24 15:58] LABS: Albumin Level 4.5 g/dl (3.5-5.0); Albumin/Globulin Ratio 1.5 (1.1-1.8); Alkaline Phosphatase 89 U/L (38-126); Anion Gap 12.5 mEq/L (5-15); Bilirubin,Total 0.2 mg/dl (0.2-1.3); Calcium 9.4 mg/dl (8.4-10.2); Carbon Dioxide 24 mmol/L (22.0-30.0); Globulin 3.1 g/dL (1.3-3.2); Glucose 86 mg/dl (74-100); Total Protein,Serum 7.6 g/dl (6.3-8.2)
[2020-12-24 16:24] VITALS: BP 85/52; PULSE 89; O2SAT 97
[2020-12-24 16:31] VITALS: BP 100/56; PULSE 68; RESP 18; O2SAT 98
[2020-12-24 16:58] VITALS: BP 84/42; PULSE 67; RESP 20; TEMP 36.8; O2SAT 99
== END 2020-12-24 16:59 | disposition home or self-care (01) ==
PROVIDERS: Emergency Provider Emergency Medicine; PCP Internal Medicine Adolescent Medicine
DX: N83.201 Unspecified ovarian cyst, right side (principal); N20.0 Calculus of kidney; F41.8 Other specified anxiety disorders; J44.9 Chronic obstructive pulmonary disease, unspecified; F17.210 Nicotine dependence, cigarettes, uncomplicated; Z88.0 Allergy status to penicillin; Z88.5 Allergy status to narcotic agent
CPT/HCPCS: 74176; 80053; 81001; 85025; 87086; 87088; 87186; 96365; 96375; 99283; J2405

== ENCOUNTER → 2020-12-28 08:36 | Outpatient (CLI) | payer BC, SELFPAY ==
--- NOTE | 2020-12-28 08:40 | US_ITS ---
PROCEDURE: US TRANSVAGINAL CLINICAL INDICATION: 4.4 cm cystic mass in the right adnexal region COMPARISON: CT CT ABDOMEN PELVIS WO CON from 12/24/2020 FINDINGS: UTERUS: 7cm x 4cmx 3cm with a combined endometrial thickness of 3.6mm LEFT OVARY: [id number] with a volume of 2.4ml. RIGHT OVARY: [id number] with a volume of 39.6ml. The right ovary is enlarged with heterogeneous echogenicity containing both solid appearing and cystic appearing components and may represent a hemorrhagic cyst measuring 4.7 x 3.5 cm. Suggest 8 week follow-up. No cul-de-sac fluid evident. The left ovary has an unremarkable appearance. IMPRESSION: Complex right ovarian cyst possibly due to a hemorrhagic cyst. Recommend 8 week follow-up to confirm resolution. Alternatively, an MRI of the pelvis may also provide further evaluation to determine hemorrhagic nature if clinically desired. Dictated by: Elliott Adame MD 12/28/2020 16:25 Elliott Adame MD in [place] 12/28/2020 16:25
== END ==
PROVIDERS: PCP Family Medicine; Visit Provider Nurse Practitioner Obstetrics & Gynecology
DX: N83.201 Unspecified ovarian cyst, right side (principal)
CPT/HCPCS: 76830

== ENCOUNTER 2021-01-30 18:37 | Emergency (ER) | payer BC, SELFPAY ==
[2021-01-30 19:46] VITALS: PULSE 89; RESP 14; TEMP 36.6; O2SAT 100; BMI 28.8
--- NOTE | 2021-01-30 20:00 | HMH.EDUTC ---
[facility] [place]ression: Rash and nonspecific skin eruption Disposition: Home, Self-Care Condition on Discharge: Good Instructions: DI for Rash, Hydrocortisone Topical Additional Instructions: Use topical medication as prescribed Over the counter benadryl may help with itching Tea tree oil may help with itching and irritation Return if needed Follow up with Family Doctor if no improvement or any worsening of symptom Straight to ER if any life threatening symptoms Prescriptions: Hydrocortisone [Hydrocortisone 1% Cream 30gm Tube] 1 applicatio TP BID #28.4 gm Transmission Status: Sent to [facility] Referrals: Ben Dougherty MD [Primary Care Provider] - As needed Time of Disposition: 20:08 Medical Decision Making - Yasir Inquiry Pt receiving controlled substance: No Yasir was queried for this patient: No Vital Signs: 01/30/21 19:46 01/30/21 20:09 Temperature 97.8 F 97.8 F Temperature Source Temporal Artery Scan Pulse Rate 89 Pulse Rate [Left] 89 Respiratory Rate 14 14 Blood Pressure 0/0 L 02 Sat by Pulse Oximetry 100 [facility] [place] - General Stated complaint: RASH Time Seen by Provider: 01/30/21 20:01 Mode of Arrival: Ambulatory Source of Information: Patient Limitations: No Limitations Description of Symptoms (Recalled from Triage Doc. by RN): PT C/O DEVELOPING A RASH OR BITES ABOUT A WK AGO BILATERALLY ON HER ANKLES AND FEET. THE AREAS ARE RED SWOLLEN AND ITCHY. PT NOW HAS A FEW SPOTS ON HER R ELBOW. ONGOING SINCE A FISHING TRIP. HEENT Symptoms (Recalled from RN notes): No Resp Symptoms (Recalled from RN notes): No Skin Symptoms (Recalled from RN notes): Yes (RASH/BITES ON FEET AND LOWER LEGS) MS Symptoms (Recalled from RN notes): No Functional Status (Recalled from RN notes): NA - History of Present Illness Provider Complaint: Patient states that she went fishing last week and was in the weeds and she was bitten on bilateral lower legs with unknown insects States that over the last week they have continued to itch and she has tried several over the counter stuff and nothing has helped so she came in to get checked - Related Data Home Medications Medication Instructions Recorded Confirmed Fluoxetine HCl [Prozac 20mg 60 mg PO DAILY 06/29/17 10/30/20 Capsule] Previous Rx's Medication Instructions Recorded diclofenac sodium 1 % topical gel 4 g TOPICAL QID PRN #30 g 02/14/20 meloxicam 7.5 mg tablet 7.5 mg PO ONCE #30 tab 02/14/20 Cefdinir [Omnicef 300mg Capsule] 300 mg PO BID #20 cap 10/25/20 Ciprofloxacin HCl/Dexameth [Cipro 2 drops EAR-LEFT BID 7 Days #1 10/25/20 0.3%-Dex 0.1% Otic Susp 7.5mL] bottle predniSONE [Prednisone 20mg 20 mg PO BID 3 Days #6 tab 10/25/20 Tab] Ketorolac Tromethamine [Toradol 10 mg PO Q6HP PRN #8 tab MDD 12/24/20 10mg tablet] 40mg/day Hydrocortisone [Hydrocortisone 1% 1 applicatio TP BID #28.4 gm 01/30/21 Cream 30gm Tube] Allergies Allergy/AdvReac Type Severity Reaction Status Date / Time codeine Allergy Verified 10/30/20 09:34 Penicillins Allergy Verified 10/30/20 09:34 - Worker's Comp Is this a Worker's Comp case?: No [facility] [place] History - Hepatitis A Screen Drug use history?: No High risk sexual behaviors?: No History of sexually transmitted infection?: No Currently employed?: No 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 I have reviewed the patient's past medical history: Yes Medical History: Reports:: Anxiety, Chronic Obstructive Pulmonary Disease (COPD), Depression, Kidney Stones Denies:: Cancer, Diabetes Mellitus Type 1, Diabetes Mellitus Type 2, Hypertension, MRSA, Seizures Other Medical History: Denies: Blood Transfusion Reaction Laterality Cases: Right: Lumpectomy Other Surgeries: Yes: Tubal Ligation, Other Amputation: No Fractures: No Comment: lymph gland remove
[2021-01-30 20:09] VITALS: BP 0/0; PULSE 89; RESP 14; TEMP 36.6
== END 2021-01-30 20:27 | disposition home or self-care (01) ==
PROVIDERS: Emergency Provider Nurse Practitioner; PCP Family Medicine
DX: R21 Rash and other nonspecific skin eruption (principal)
CPT/HCPCS: 99202; G0463

== ENCOUNTER 2021-03-04 18:08 | Emergency (ER) | payer BC, SELFPAY ==
[2021-03-04 18:09] VITALS: BP 121/61; PULSE 91; RESP 16; TEMP 36.9; O2SAT 98; BMI 29.6
--- NOTE | 2021-03-04 18:51 | HMH.EDUTC ---
[facility] [place] Clinical Impression: Migraine Qualifiers: Migraine type: with aura Status migrainosus presence: without status migrainosus Intractability: not intractable Qualified Code(s): G43.109 - Migraine with aura, not intractable, without status migrainosus Disposition: Home, Self-Care Condition on Discharge: Good Instructions: Migraine -- Adult, DI for Migraine Additional Instructions: Drink plenty of fluids. Try the Ublevy that we prescribed for your headaches. Follow up with your regular doctor. GO TO THE ER FOR ANY WORSENING SYMPTOMS Prescriptions: Ibuprofen [Ibuprofen 800mg Tablet] 800 mg PO Q8HP PRN #30 tab PRN Reason: Moderate Pain Transmission Status: Received by [facility] Promethazine HCl [Phenergan 25mg tab] 25 mg PO Q6H PRN #15 tab PRN Reason: Nausea And Vomiting Transmission Status: Received by [facility] Ubrogepant [Ubrelvy 50mg Tablet] 50 mg PO DAILYP PRN #10 tab PRN Reason: Headache Transmission Status: Received by [facility] Referrals: Ben Dougherty MD [Primary Care Provider] - Forms: Work/School Release Time of Disposition: 19:09 Medical Decision Making - Medical Records Medical records reviewed: No: I reviewed the patient's medical records. - Yasir Inquiry Pt receiving controlled substance: No Vital Signs: 03/04/21 18:09 03/04/21 19:33 Temperature 98.5 F 98.1 F Temperature Source Oral Oral Pulse Rate 82 Pulse Rate [Right] 91 H Respiratory Rate 16 16 Blood Pressure 120/62 Blood Pressure [Right Arm] 121/61 Blood Pressure Mean [Right Arm] 81 Blood Pressure Source Automatic Cuff Blood Pressure Source [Right Arm] Automatic Cuff Blood Pressure Position Sitting Blood Pressure Position [Right Arm] Sitting 02 Sat by Pulse Oximetry 98 Oxygen Delivery Method Room Air Room Air Orders (Tests/Meds): ED MEDICATIONS Discontinued Medications Generic Name Dose Route Start Last Admin Trade Name Freq PRN Reason Stop Dose Admin Ketorolac Tromethamine 60 mg 03/04/21 19:02 03/04/21 19:29 Ketorolac 60mg/2ml Vial IM 03/04/21 19:03 60 mg ONCE ONE Administration Methylprednisolone Sodium Succinate 125 mg 03/04/21 19:02 03/04/21 19:29 Methylprednisolone Sod Succ 125mg Vial IM 03/04/21 19:03 125 mg ONCE ONE Administration [facility] [place] HPI - General Stated complaint: FERGUSON Time Seen by Provider: 03/04/21 18:52 Mode of Arrival: Ambulatory Source of Information: Patient Limitations: No Limitations Description of Symptoms (Recalled from Triage Doc. by RN): pt advises she has had a migraine on and off since . Advises she took some ubrevly and it helped but it has come back HEENT Symptoms (Recalled from RN notes): No Resp Symptoms (Recalled from RN notes): No Skin Symptoms (Recalled from RN notes): No MS Symptoms (Recalled from RN notes): No Functional Status (Recalled from RN notes): na - History of Present Illness Provider Complaint: She has had a migraine headache for the past 2 to 3 days. She has been able to get it stop hurting by taking Ublevy, but then by the next morning her headache has returned. She has a long history or getting migraine headaches. She states that this episode feels just like her normal symptoms, but it has just went on longer than she would like it to. - Related Data Home Medications Medication Instructions Recorded Confirmed Fluoxetine HCl [Prozac 20mg 60 mg PO DAILY 06/29/17 10/30/20 Capsule] Previous Rx's Medication Instructions Recorded diclofenac sodium 1 % topical gel 4 g TOPICAL QID PRN #30 g 02/14/20 meloxicam 7.5 mg tablet 7.5 mg PO ONCE #30 tab 02/14/20 Cefdinir [Omnicef 300mg Capsule] 300 mg PO BID #20 cap 10/25/20 Ciprofloxacin HCl/Dexameth [Cipro 2 drops EAR-LEFT BID 7 Days #1 10/25/20 0.3%-Dex 0.1% Otic Susp 7.5mL] bottle predniSONE [Prednisone 20mg 20 mg PO BID 3 Days #6 tab 10/25/20 Tab] Ketorolac Tromethamine [Toradol 10 mg PO Q
[2021-03-04 19:33] VITALS: BP 120/62; PULSE 82; RESP 16; TEMP 36.7; O2SAT 98
== END 2021-03-04 19:35 | disposition home or self-care (01) ==
PROVIDERS: Emergency Provider Nurse Practitioner Family; PCP Family Medicine
DX: G43.109 Migraine with aura, not intractable, without status migrainosus (principal); F41.8 Other specified anxiety disorders; J44.9 Chronic obstructive pulmonary disease, unspecified; F17.210 Nicotine dependence, cigarettes, uncomplicated
CPT/HCPCS: 96372; 99202; G0463

== ENCOUNTER 2021-05-21 16:46 | Emergency (ER) | payer BC, SELFPAY ==
[2021-05-21 18:00] VITALS: BP 114/63; PULSE 68; RESP 18; TEMP 36.9; O2SAT 98; BMI 29.6
[2021-05-21 18:13] LABS: UTC Influenza A Antigen Negative (Negative)
[2021-05-21 18:14] LABS: UTC Influenza B Antigen Negative (Negative)
--- NOTE | 2021-05-21 18:27 | HMH.EDUTC ---
[facility] [place]: Nausea vomiting and diarrhea, Viral syndrome Disposition: Home, Self-Care Condition on Discharge: Good Instructions: Diarrhea, Nausea and Vomiting-Adult, DI for COVID-19 (Suspected or Confirmed ), Preventing the Spread of Coronavirus Discharge Instructions Additional Instructions: Drink extra fluids with and between meals. If you have difficulty drinking, try very small amounts of water or suck on ice chips. ? Avoid fruit juices, as these do not replace minerals and can actually increase diarrhea. ? Children and adults can use sports drinks to replenish electrolytes. Younger children and infants should use products formulated for children, like oral rehydration solutions. ? Eat food in small amounts and let your stomach recover. ? Get lots of rest. You may feel tired or weak. ? No greasy or fried foods for the next 24-48 hours BRAT diet Bananas Rice Apples and Abanda ? Make sure to drink plenty of liquids ? Return if needed ? Straight to ER if any life threatening symptoms ? Zofran as prescribed ? You was given an outpatient order for diarrhea panel, please collect specimen and bring back to outpatient lab then call back to the [facility] or follow up with family doctor for results ? Follow up with family doctor in the next 48-72 hours if no improvement or any worsening of symptoms Prescriptions: Dicyclomine HCl [Bentyl 10mg capsule] 10 mg PO TID PRN #15 cap PRN Reason: Cramping Transmission Status: Received by [facility] Ondansetron [Zofran 4mg ODT] 4 mg PO TIDP PRN #12 tab PRN Reason: Nausea Transmission Status: Received by [facility] Referrals: Ben Dougherty MD [Primary Care Provider] - As needed Forms: Work/School Release Time of Disposition: 18:46 Medical Decision Making - Yasir Inquiry Pt receiving controlled substance: No Yasir was queried for this patient: No Vital Signs: 05/21/21 18:00 05/21/21 18:39 Temperature 98.4 F 98.4 F Temperature Source Oral Pulse Rate 68 Pulse Rate [Right Brachial] 68 Respiratory Rate 18 18 Blood Pressure 114/63 Blood Pressure [Right Arm] 114/63 Blood Pressure Mean [Right Arm] 80 Blood Pressure Source [Right Arm] Automatic Cuff Blood Pressure Position [Right Arm] Sitting 02 Sat by Pulse Oximetry 98 Oxygen Delivery Method Room Air - Lab Data Lab Results 05/21/21 18:13: Influenza Type A Ag Negative, Influenza Type B Ag Negative Orders (Tests/Meds): ED MEDICATIONS Discontinued Medications Generic Name Dose Route Start Last Admin Trade Name Cedric PRN Reason Stop Dose Admin Dicyclomine HCl 10 mg 05/21/21 18:33 05/21/21 18:37 Dicyclomine 10mg Capsule PO 05/21/21 18:34 10 mg ONCE ONE Administration Ondansetron HCl 4 mg 05/21/21 18:30 05/21/21 18:37 Ondansetron 4mg Odt SL 05/21/21 18:31 4 mg ONCE ONE Administration ORDERS Category Date Time Status Covid-19 Nasal PCR ([facility]) Routine Lab 05/21/21 18:02 Received Medical Decision Narrative: Patient reports had tubal denies [facility] [place] General Stated complaint: Flu and covid test Time Seen by Provider: 05/21/21 18:27 Mode of Arrival: Ambulatory Source of Information: Patient Limitations: No Limitations Description of Symptoms (Recalled from Triage Doc. by RN): PATIENT C/O DIARRHEA, VOMITING, FATIGUE, AND HEADACHE THAT STARTED THURSDAY HEENT Symptoms (Recalled from RN notes): No Resp Symptoms (Recalled from RN notes): No Skin Symptoms (Recalled from RN notes): No MS Symptoms (Recalled from RN notes): No Functional Status (Recalled from RN notes): WNL - History of Present Illness Provider Complaint: Patient states that she started feeling bad on Thursday with body aches, chills, N/V/D States that today she went to work and left after she got sick to her stomach and she came home and laid down States that she slept most of the day and when she woke up she was still feeling achy and fatigued and she got sahil
[2021-05-21 18:39] VITALS: BP 114/63; PULSE 68; RESP 18; TEMP 36.9; O2SAT 98
== END 2021-05-21 18:50 | disposition home or self-care (01) ==
PROVIDERS: Emergency Provider Nurse Practitioner; PCP Family Medicine
DX: Z20.822 Contact with and (suspected) exposure to COVID-19 (principal); B34.9 Viral infection, unspecified; R11.2 Nausea with vomiting, unspecified; R51.9 Headache, unspecified
CPT/HCPCS: 87804; 99202; C9803; G0463; U0003; U0005

== ENCOUNTER → 2021-06-10 08:02 | Outpatient (CLI) | payer BC, SELFPAY | PROVIDERS: Visit Provider Nurse Practitioner | DX: Z20.822 Contact with and (suspected) exposure to COVID-19 (principal) | CPT/HCPCS: C9803; U0003; U0005 ==

== ENCOUNTER 2021-12-19 13:52 | Emergency (ER) | payer BC, SELFPAY ==
[2021-12-19] VITALS (9 sets, daily range): BP systolic 84–123; BP diastolic 42–80; PULSE 64–108; RESP 16–18; TEMP 37; O2SAT 95–99; BMI 27.3; BMI 28.1
--- NOTE | 2021-12-19 14:09 | HMH.EDGENADL ---
ED Disposition Clinical Impression: Trichomonal vaginitis Disposition: Home, Self-Care Condition on Discharge: Good Instructions: DI for Trichomoniasis Additional Instructions: Take Flagyl as prescribed. Follow-up with PCP or meter setter, call for appointment. Prescriptions: metroNIDAZOLE [Metronidazole] 500 mg PO BID #14 tab Transmission Status: Pending to [facility] Referrals: Lidia Rice APRN [Primary Care Provider] - - Critical Care Critical Care Time: No Attestation: On 12/19/21, the high probability of a clinically significant, sudden or life threatening deterioration of the following system(s) required my full and direct attention, intervention and personal management. The time I documented below is in addition to time spent performing reported procedures but includes the following listed in this critical care notation. Medical Decision Making - Yasir Inquiry Pt receiving controlled substance: No Yasir was queried for this patient: Yes Vital Signs: 12/19/21 14:03 12/19/21 14:09 12/19/21 14:30 Temperature 98.6 F Temperature Source Oral Pulse Rate 89 81 Pulse Rate [Left Radial] 108 H Respiratory Rate 18 Blood Pressure 106/67 L 123/71 Blood Pressure [Right Arm] 106/67 L Blood Pressure Mean 76 81 Blood Pressure Mean [Right Arm] 80 Blood Pressure Source [Right Arm] Automatic Cuff Blood Pressure Position [Right Arm] Sitting 02 Sat by Pulse Oximetry 95 95 95 Oxygen Delivery Method Room Air 12/19/21 15:00 12/19/21 15:30 Temperature Temperature Source Pulse Rate 74 68 Pulse Rate [Left Radial] Respiratory Rate 18 16 Blood Pressure 84/42 L 92/44 L Blood Pressure [Right Arm] Blood Pressure Mean 56 56 Blood Pressure Mean [Right Arm] Blood Pressure Source [Right Arm] Blood Pressure Position [Right Arm] 02 Sat by Pulse Oximetry 97 98 Oxygen Delivery Method - Lab Data Lab Results 12/19/21 14:00: Urine Color Yellow, Urine Appearance Clear, Urine pH 6.5, Ur Specific [place] >= 1.030, Urine Protein Trace, Urine Glucose (UA) Negative, Urine Ketones Negative, Urine Blood Trace-i, Urine Nitrate Positive, Urine Bilirubin Negative, Urine Urobilinogen 0.2, Ur Leukocyte Esterase 1+ A, Urine RBC 5-10, Urine WBC 5-10, Ur Squamous Epith Cells 20-50, Urine Bacteria 3+ 12/19/21 14:00: WBC 9.5, RBC 4.86, Hgb 14.0, Hct 43.6, MCV 89.6, MCH 28.8, MCHC 32.2, RDW 13.1, Plt Count 300, MPV 9.0, Neut % (Auto) 69.9, Lymph % (Auto) 23.3, [place] % (Auto) 4.6, Eos % (Auto) 1.3, Baso % (Auto) 0.9, Neut # (Auto) 6.6, Lymph # (Auto) 2.2, [place] # (Auto) 0.4, Eos # (Auto) 0.1, Baso # (Auto) 0.1 12/19/21 14:00: Sodium 140, Potassium 3.5, Chloride 105, Carbon Dioxide 30, Anion Gap 8.5, BUN 17, Creatinine 0.80, Estimated Creat Clear 123, Estimated GFR 79, Est GFR ( Amer) 96, Glucose 112 H, Calcium 9.9, Total Bilirubin 0.3, AST 34, ALT 28, Alkaline Phosphatase 83, Total Protein 7.8, Albumin 4.5, Globulin 3.3 H, Albumin/Globulin Ratio 1.4 12/19/21 14:00: Urine HCG, Qual Negative Result diagrams: 12/19/21 14:00 12/19/21 14:00 Orders (Tests/Meds): ED MEDICATIONS Generic Name Dose Route Start Last Admin Trade Name Freq PRN Reason Stop Dose Admin Sodium Chloride 10 ml 12/19/21 14:16 Sodium Chloride 0.9% 10ml Flush Syringe IV 01/18/22 14:15 NEEDED PRN Maintain IV Site Discontinued Medications Generic Name Dose Route Start Last Admin Trade Name Freq PRN Reason Stop Dose Admin Ketorolac Tromethamine 30 mg 12/19/21 14:09 12/19/21 14:10 Ketorolac 30mg/Ml Vial IV 12/19/21 14:10 30 mg ONCE ONE Administration Ondansetron HCl 4 mg 12/19/21 14:09 12/19/21 14:10 Ondansetron 4mg/2ml Vial IV 12/19/21 14:10 4 mg ONCE ONE Administration ORDERS Category Date Time Status Urine Culture Stat Micro 12/19/21 14:00 Received - CT Data CT Scan: Abdomen, Pelvis Time Received: 16:[address] Reviewed: Yes: I have viewed the radiologist
--- NOTE | 2021-12-19 14:16 | CT_ITS ---
FINAL REPORT TECHNIQUE: Axial images through the abdomen and pelvis were performed without contrast. This study was performed with techniques to keep radiation doses as low as reasonably achievable, (ALARA). Individualized dose reduction techniques using automated exposure control or adjustment of mA and/or kV according to the patient's size were employed. CLINICAL HISTORY: pain, hx of stones, patient states vaginal pain COMPARISON: 12/24/2020 FINDINGS: ABDOMEN: There is mild bibasilar atelectasis. The heart size is normal. Limited images of the liver are unremarkable. The gallbladder is present. The spleen is normal. No adrenal mass is identified. The aorta is normal in caliber. There is no significant free fluid or adenopathy. There are mild multiple less than 3 mm nonobstructing bilateral renal stones. There is no hydronephrosis. PELVIS: The appendix is unremarkable. The uterus has a mildly lobular contour, may represent fibroids. Right ovarian cystic mass seen on the prior exam has resolved. The urinary bladder is unremarkable. There is no significant free fluid or adenopathy. IMPRESSION: Bilateral nephrolithiasis. Possible uterine fibroids. Resolution of previously seen right ovarian cyst. Reviewed, Interpreted and Dictated by Lencho Hooks III, MD Transcribed by Hue Perez Authenticated and [facility]
[2021-12-19 14:20] LABS: Microscopic, Urine URINE MICROSCOPIC (MICROSCOPIC)
--- NOTE | 2021-12-19 14:26 | PC.NURSE ---
LISET MANUEL and Yariel,RN at for pelvic exam
[2021-12-19 14:27] LABS: Appearance,Urine CLEAR (Clear); Bilirubin,Urine Negative (Negative); Blood, Urine TRACE-I (Negative); Color,Urine YELLOW (Yellow); Glucose,Urine (UA) Negative (Negative); Ketones,Urine Negative (Negative); Leukocyte Esterase,Urine 1+ (Negative); Nitrate,Urine POSITIVE (Negative); PH,Urine 6.5 (5.0-8.5); Protein,Urine TRACE (Negative); Specific Gravity, Urine >= 1.030 (1.005-1.030); Urobilinogen,Urine 0.2 EU/dl (0.2)
[2021-12-19 14:29] LABS: Chloride 105 mmol/L (98-107); Potassium 3.5 mmoL/L (3.5-5.1); Sodium 140 mmol/L (136-145)
[2021-12-19 14:31] LABS: Alanine Aminotransferase 28 U/L (12-78); Aspartate Amino Transferase 34 U/L (14-36); Blood Urea Nitrogen 17 mg/dl (7-17); Creatinine Clearance Estimated 123 mL/min (50-200); Estimated Glomerular Filt Rate 79 ml/min (>60); GFR (African American) 96 ML/MIN (>60)
[2021-12-19 14:32] LABS: Albumin Level 4.5 g/dl (3.5-5.0); Albumin/Globulin Ratio 1.4 (1.1-1.8); Alkaline Phosphatase 83 U/L (38-126); Anion Gap 8.5 mEq/L (5-15); Bilirubin,Total 0.3 mg/dl (0.2-1.3); Calcium 9.9 mg/dl (8.4-10.2); Carbon Dioxide 30 mmol/L (22.0-30.0); Globulin 3.3 g/dL (1.3-3.2); Glucose 112 mg/dl (74-100); Total Protein,Serum 7.8 g/dl (6.3-8.2)
--- NOTE | 2021-12-19 14:34 | PC.NURSE ---
assisted MD with vaginal exam. pt prepped for exam and vaginal sample collected and sent to lab, pt tolerated well with no complaints at this time. Bed placed back in er stretcher and pt adjusted for pt comfort.
[2021-12-19 14:38] LABS: Urine Pregnancy, HCG Qual. Negative (Negative)
[2021-12-19 14:48] LABS: Bacteria,Urine 3+ /lpf; Squamous Epithelial Cell,Urine 20-50 #/hpf (0-5)
[2021-12-19 14:52] LABS: Basophils # 0.1 K/mm3 (0-0.2); Basophils % 0.9 % (0.1-2.0); Eosinophils # 0.1 K/mm3 (0.0-0.4); Eosinophils % 1.3 % (0.1-12.0); Hematocrit 43.6 % (37.0-47.0); Lymphocytes # 2.2 K/mm3 (0.7-4.5); Lymphocytes % 23.3 % (10-50); Mean Corpuscular HGB Conc 32.2 g/dL (31.8-35.4); Mean Corpuscular Hemoglobin 28.8 pg (27.0-31.2); Mean Corpuscular Volume 89.6 fl (81-99); Monocytes # 0.4 K/mm3 (0.1-1.0); Monocytes % 4.6 % (1.7-9.3); Neutrophils # 6.6 K/mm3 (1.8-7.8); Neutrophils % 69.9 % (37.0-80.0); Platelet Count 300 K/mm3 (142-424); Red Blood Count 4.86 M/mm3 (4.20-5.40); Red Cell Distribution Width 13.1 % (11.5-17.5); White Blood Count 9.5 K/mm3 (4.8-10.8)
--- NOTE | 2021-12-19 15:28 | PC.NURSE ---
pt at RAD
--- NOTE | 2021-12-19 15:43 | PC.NURSE ---
rounded on pt, given anther blanket and updated that we are waiting for scans to be read
[2021-12-23 21:12] LABS: Neisseria gonorrhoeae, NAA Negative (Negative)
== END 2021-12-19 17:29 | disposition home or self-care (01) ==
PROVIDERS: Emergency Provider Emergency Medicine; PCP Nurse Practitioner Family
DX: R10.2 Pelvic and perineal pain (principal); N83.201 Unspecified ovarian cyst, right side; R00.1 Bradycardia, unspecified; N20.0 Calculus of kidney; R61 Generalized hyperhidrosis; J44.9 Chronic obstructive pulmonary disease, unspecified; F32.A Depression, unspecified; F41.9 Anxiety disorder, unspecified; F17.210 Nicotine dependence, cigarettes, uncomplicated; Z88.0 Allergy status to penicillin; Z88.5 Allergy status to narcotic agent; Z82.49 Family history of ischemic heart disease and other diseases of the circulatory system; Z82.5 Family history of asthma and other chronic lower respiratory diseases; Z80.9 Family history of malignant neoplasm, unspecified
CPT/HCPCS: 74176; 80053; 81001; 81025; 85025; 87086; 87088; 87186; 87210; 87491; 87591; 96374; 96375; 99285; J2405

== ENCOUNTER 2022-01-12 14:55 | Emergency (ER) | payer BC, SELFPAY ==
--- NOTE | 2022-01-12 15:01 | EXP.UTC ---
Discharge Plan Disposition Condition: Good Prescriptions Prescriptions: New promethazine 25 mg Tablet 25 mg PO Q6H PRN (Reason: Nausea And Vomiting) Qty: 20 0RF Paxlovid (EUA) 300 mg (150 mg x 2)-100 mg tablet See Rx Instructions PO .COMPLEX Qty: 30 0RF Rx Instructions: take TWO 150 mg tablets of nirmatrelvir with ONE 100 mg tablet of ritonavir twice daily for 5 days benzonatate [benzonatate] 100 mg capsule 100 mg PO TIDP PRN (Reason: Cough) Qty: 30 0RF No Action ondansetron 4 MG tablet,disintegrating 4 mg PO TIDP PRN (Reason: Nausea) Qty: 12 0RF dicyclomine 10 MG capsule 10 mg PO TID PRN (Reason: Cramping) Qty: 15 0RF metronidazole 500 MG tablet 500 mg PO BID Qty: 14 0RF Activity Restrictions/Add. Instructions Additional Instructions/Restrictions: Drink plenty of fluids. Take tylenol or ibuprofen for pain or fever. Take the medications as directed. Follow up with your regular doctor. GO TO THE ER FOR ANY WORSENING SYMPTOMS Quarantine until you know the results of your covid-19 test. Notify your school or workplace of your results and follow their instructions regarding return to work/school. Clinical Impressions Clinical Impression: COVID-19 Stand Alone Forms Stand Alone Forms: Work/School Release Instructions Patient Instructions: Coronavirus Disease 2019, Preventing the Spread of Coronavirus Discharge Instructions Discharge ED Provider: Howard Parker [facility] General Stated complaint: covid symtoms Time Seen by Provider: 01/12/22 15:11 History of Present Illness Provider Complaint: She states that for the past 2 days she has had body aches, n/v/d, fever and chills. She has a history of copd, but she denies sob or significant cough. Related Data Previous Rx's Medication Instructions Recorded dicyclomine 10 mg capsule 10 mg PO TID PRN Cramping #15 caps 05/21/21 ondansetron 4 mg disintegrating 4 mg PO TIDP PRN Nausea #12 tabs 05/21/21 tablet metronidazole 500 mg tablet 500 mg PO BID #14 tabs 12/19/21 benzonatate 100 mg capsule 100 mg PO TIDP PRN Cough #30 caps 01/12/22 nirmatrelvir 300 mg (150 mg x See Rx Instructions PO .COMPLEX 01/12/22 2)-ritonavir 100 mg tablet (EUA) #30 tabs (Paxlovid 300 mg () promethazine 25 mg tablet 25 mg PO Q6H PRN Nausea And 01/12/22 Vomiting #20 tabs Allergies Allergy/AdvReac Type Severity Reaction Status Date / Time codeine Allergy Verified 01/12/22 15:19 Penicillins Allergy Verified 01/12/22 15:19 PFSH PFSH Social History Smoking Status: Current every day smoker tobacco type: cigarettes packs per day: 1 second hand exposure: No alcohol intake: never substance use type: denies use current occupational status: other household members: other housing: other ROS Obtained: Yes All systems reviewed & no additional complaints except as documented Constitutional Constitutional: Reports chills and Reports fever(s) Eyes Eyes: Denies eye discharge ENT Ears, Nose, Mouth, and Throat: Reports as per HPI Cardiovascular Cardiovascular: Denies chest pain Respiratory Respiratory: Denies chest congestion and Reports cough Gastrointestinal Gastrointestingal: Reports nausea; Denies abdominal pain, constipation, cramping, diarrhea or vomiting Musculoskeletal Musculoskeletal: Denies arthralgias Integumentary/Breasts Skin/Breast: Denies rash Neurologic Neurologic: Denies paresthesias Physical Exam General General appearance: alert and in no apparent distress Head Head exam: atraumatic, normocephalic and normal inspection Eye Eye exam: Present normal appearance, PERRL and EOMI ENT ENT exam: Present normal exam, normal oropharynx, mucous membranes moist, TM's normal bilaterally and normal external ear exam Neck Neck exam: Present normal inspection, full ROM and trachea midline; Absent meningismus or lymphadenopathy Chest Chest inspection:
[2022-01-12 15:15] VITALS: BP 101/61; PULSE 83; RESP 16; TEMP 36.8; O2SAT 95; BMI 27.3
[2022-01-12 15:24] LABS: UTC Strep Screen (Rapid) Negative (Negative)
[2022-01-12 17:09] VITALS: BP 101/61; PULSE 83; RESP 16; TEMP 36.6
== END 2022-01-12 17:10 | disposition home or self-care (01) ==
PROVIDERS: Emergency Provider Nurse Practitioner Family
DX: U07.1 COVID-19 (principal); R11.2 Nausea with vomiting, unspecified; R19.7 Diarrhea, unspecified; R50.9 Fever, unspecified; J44.9 Chronic obstructive pulmonary disease, unspecified; F17.210 Nicotine dependence, cigarettes, uncomplicated; Z88.0 Allergy status to penicillin; Z88.5 Allergy status to narcotic agent
CPT/HCPCS: 87880; 99213; C9803; G0463; U0003; U0005

== ENCOUNTER 2022-01-29 17:31 | Emergency (ER) | payer BC, OTHER, SELFPAY ==
--- NOTE | 2022-01-29 17:42 | XR_ITS ---
PROCEDURE INFORMATION: Exam: XR Right Ankle Exam date and time: 01/29/2022 5:45 PM Age: 41 years old Clinical indication: Pain; Ankle; Right; Additional info: Fall TECHNIQUE: Imaging protocol: Radiologic exam of the Right ankle. Views: 3 or more views. COMPARISON: CR XR FOOT RT MIN 3V 01/29/2022 5:43 PM FINDINGS: Bones/joints: Normal. Soft tissues: Normal. IMPRESSION: No acute findings.
--- NOTE | 2022-01-29 17:42 | XR_ITS ---
PROCEDURE INFORMATION: Exam: XR Right Foot Exam date and time: 01/29/2022 5:43 PM Age: 41 years old Clinical indication: Injury or trauma; Fall; Blunt trauma; Foot; Right TECHNIQUE: Imaging protocol: Radiologic exam of the Right foot. Views: 3 or more views. COMPARISON: CR XR FOOT WT BEARING RT 3V 02/08/2020 4:34 PM FINDINGS: Bones/joints: Normal. Soft tissues: Normal. IMPRESSION: No acute findings.
[2022-01-29 17:53] VITALS: BP 110/50; PULSE 93; RESP 18; TEMP 36.9; O2SAT 97; BMI 27.3
--- NOTE | 2022-01-29 18:35 | EXP.UTC ---
Discharge Plan Disposition Patient Disposition: Home, Self-Care Condition: Good Prescriptions Prescriptions: New ibuprofen [IBU] 800 mg tablet 800 mg PO Q8HP PRN (Reason: Moderate Pain) Qty: 30 0RF No Action ondansetron 4 MG tablet,disintegrating 4 mg PO TIDP PRN (Reason: Nausea) Qty: 12 0RF dicyclomine 10 MG capsule 10 mg PO TID PRN (Reason: Cramping) Qty: 15 0RF metronidazole 500 MG tablet 500 mg PO BID Qty: 14 0RF promethazine 25 mg Tablet 25 mg PO Q6H PRN (Reason: Nausea And Vomiting) Qty: 20 0RF Paxlovid (EUA) 300 mg (150 mg x 2)-100 mg tablet See Rx Instructions PO .COMPLEX Qty: 30 0RF Rx Instructions: take TWO 150 mg tablets of nirmatrelvir with ONE 100 mg tablet of ritonavir twice daily for 5 days benzonatate [benzonatate] 100 mg capsule 100 mg PO TIDP PRN (Reason: Cough) Qty: 30 0RF Referrals Follow up/Referrals: Lidia Rice APRN [Primary Care Provider] - See instructions Marcia Pope DPM [Staff Physician] - See instructions Activity Restrictions/Add. Instructions Additional Instructions/Restrictions: Rest the extremity, apply ice for 15 minutes as tolerated three or four times per day, Elevate the extremity as tolerated while you are resting. Take ibuprofen for pain. I sent in a prescription to your pharmacy. Follow up with Dr. Pope (podiatry). Follow up with your regular doctor. GO TO THE ER FOR ANY WORSENING SYMPTOMS Clinical Impressions Clinical Impression: Contusion of foot, right, Right foot sprain Instructions Patient Instructions: How to Use Crutches, DI for Foot Sprain Discharge ED Provider: Howard Parker [facility] General Stated complaint: [id number] at home injured R foot Mode of Arrival: Ambulatory Source of Information: Patient Limitations: No Limitations Time Seen by Provider: 01/29/22 18:35 HEENT Symptoms (Recalled from RN notes): No Resp Symptoms (Recalled from RN notes): No Skin Symptoms (Recalled from RN notes): No MS Symptoms (Recalled from RN notes): Yes Functional Status (Recalled from RN notes): n/a History of Present Illness Provider Complaint: pt comes in with c/o right foot injury. this am she kicked a metal bed frame. Related Data Previous Rx's Medication Instructions Recorded dicyclomine 10 mg capsule 10 mg PO TID PRN Cramping #15 caps 05/21/21 ondansetron 4 mg disintegrating 4 mg PO TIDP PRN Nausea #12 tabs 05/21/21 tablet metronidazole 500 mg tablet 500 mg PO BID #14 tabs 12/19/21 benzonatate 100 mg capsule 100 mg PO TIDP PRN Cough #30 caps 01/12/22 nirmatrelvir 300 mg (150 mg See Rx Instructions PO .COMPLEX 01/12/22 x2)-ritonavir 100 mg tablet,dose #30 tabs pack(EUA) (Paxlovid) promethazine 25 mg tablet 25 mg PO Q6H PRN Nausea And 01/12/22 Vomiting #20 tabs ibuprofen 800 mg tablet (IBU) 800 mg PO Q8HP PRN Moderate Pain 01/29/22 #30 tabs Allergies Allergy/AdvReac Type Severity Reaction Status Date / Time codeine Allergy Verified 01/29/22 17:56 Penicillins Allergy Verified 01/29/22 17:56 Worker's Comp Is this a Worker's Comp case?: No PFSH PFSH Social History Smoking Status: Current every day smoker tobacco type: cigarettes packs per day: 1 second hand exposure: No alcohol intake: never substance use type: denies use current occupational status: other Travel in the last 8 weeks: None household members: other housing: other ROS Obtained: Yes All systems reviewed & no additional complaints except as documented Constitutional Constitutional: Denies chills and Denies fever(s) Integumentary/Breasts Skin/Breast: Denies redness, Denies rash and Denies wounds Neurologic Neurologic: Denies paresthesias Physical Exam General General appearance: alert and in no apparent distress Head Head exam: atraumatic, normocephalic and normal inspection Eye Eye exam: Present normal appearance, PERRL and EOMI ENT ENT
[2022-01-29 19:03] VITALS: BP 110/50; PULSE 93; RESP 18; TEMP 36.9
== END 2022-01-29 19:04 | disposition home or self-care (01) ==
PROVIDERS: Emergency Provider Nurse Practitioner Family; PCP Nurse Practitioner Family
DX: S93.601A Unspecified sprain of right foot, initial encounter (principal); W22.8XXA Striking against or struck by other objects, initial encounter; Y92.009 Unspecified place in unspecified non-institutional (private) residence as the place of occurrence of the external cause
CPT/HCPCS: 73610; 73630; 99212; G0463

== ENCOUNTER 2022-03-12 17:10 | Emergency (ER) | payer BC, OTHER, SELFPAY ==
--- NOTE | 2022-03-12 17:29 | EXP.UTC ---
Discharge Plan Disposition Patient Disposition: Home, Self-Care Condition: Good Prescriptions Prescriptions: New benzonatate [benzonatate] 100 mg capsule 100 mg PO TIDP PRN (Reason: Cough) Qty: 30 0RF ondansetron 4 mg Tablet,Disintegrating 4 mg PO Q8H PRN (Reason: Nausea) Qty: 20 0RF No Action ondansetron 4 MG tablet,disintegrating 4 mg PO TIDP PRN (Reason: Nausea) Qty: 12 0RF dicyclomine 10 MG capsule 10 mg PO TID PRN (Reason: Cramping) Qty: 15 0RF metronidazole 500 MG tablet 500 mg PO BID Qty: 14 0RF promethazine 25 mg Tablet 25 mg PO Q6H PRN (Reason: Nausea And Vomiting) Qty: 20 0RF Paxlovid (EUA) 300 mg (150 mg x 2)-100 mg tablet See Rx Instructions PO .COMPLEX Qty: 30 0RF Rx Instructions: take TWO 150 mg tablets of nirmatrelvir with ONE 100 mg tablet of ritonavir twice daily for 5 days benzonatate [benzonatate] 100 mg capsule 100 mg PO TIDP PRN (Reason: Cough) Qty: 30 0RF ibuprofen [IBU] 800 mg tablet 800 mg PO Q8HP PRN (Reason: Moderate Pain) Qty: 30 0RF Referrals Follow up/Referrals: Lidia Rice APRN [Primary Care Provider] - See instructions Activity Restrictions/Add. Instructions Additional Instructions/Restrictions: Drink plenty of fluids. Take tylenol or ibuprofen for pain or fever. Take the medications as directed. Follow up with your regular doctor. GO TO THE ER FOR ANY WORSENING SYMPTOMS Clinical Impressions Clinical Impression: Viral syndrome Stand Alone Forms Stand Alone Forms: Work/School Release Instructions Patient Instructions: DI for Viral Syndrome Discharge ED Provider: Howard Parker [facility] General Stated complaint: sore throat, ear pain Time Seen by Provider: 03/12/22 17:28 History of Present Illness Provider Complaint: She c/o sore throat and left ear pain for the past 3 days. Related Data Previous Rx's Medication Instructions Recorded dicyclomine 10 mg capsule 10 mg PO TID PRN Cramping #15 caps 05/21/21 ondansetron 4 mg disintegrating 4 mg PO TIDP PRN Nausea #12 tabs 05/21/21 tablet metronidazole 500 mg tablet 500 mg PO BID #14 tabs 12/19/21 benzonatate 100 mg capsule 100 mg PO TIDP PRN Cough #30 caps 01/12/22 nirmatrelvir 300 mg (150 mg See Rx Instructions PO .COMPLEX 01/12/22 x2)-ritonavir 100 mg tablet,dose #30 tabs pack(EUA) (Paxlovid) promethazine 25 mg tablet 25 mg PO Q6H PRN Nausea And 01/12/22 Vomiting #20 tabs ibuprofen 800 mg tablet (IBU) 800 mg PO Q8HP PRN Moderate Pain 01/29/22 #30 tabs benzonatate 100 mg capsule 100 mg PO TIDP PRN Cough #30 caps 03/12/22 ondansetron 4 mg disintegrating 4 mg PO Q8H PRN Nausea #20 tabs 03/12/22 tablet Allergies Allergy/AdvReac Type Severity Reaction Status Date / Time codeine Allergy Verified 01/29/22 17:56 Penicillins Allergy Verified 01/29/22 17:56 [facility] Social History Smoking Status: Current every day smoker tobacco type: cigarettes packs per day: 1 second hand exposure: No alcohol intake: never substance use type: denies use current occupational status: other Travel in the last 8 weeks: None household members: other housing: other ROS Obtained: Yes All systems reviewed & no additional complaints except as documented Constitutional Constitutional: Denies chills and Denies fever(s) Eyes Eyes: Denies eye discharge ENT Ears, Nose, Mouth, and Throat: Reports as per HPI Cardiovascular Cardiovascular: Denies chest pain Respiratory Respiratory: Denies chest congestion and Reports cough Gastrointestinal Gastrointestingal: Reports nausea; Denies abdominal pain, constipation, cramping, diarrhea or vomiting Musculoskeletal Musculoskeletal: Denies arthralgias Integumentary/Breasts Skin/Breast: Denies rash Neurologic Neurologic: Denies paresthesias Physical Exam General General appearance: alert and in no apparent distress Head Head exam: atrau
[2022-03-12 17:33] VITALS: BP 86/47; PULSE 108; RESP 20; TEMP 37.7; O2SAT 99; BMI 29.0
[2022-03-12 17:50] LABS: UTC Strep Screen (Rapid) Negative (Negative)
[2022-03-12 18:42] VITALS: BP 90/56; PULSE 94; RESP 17; TEMP 37.4; O2SAT 100
[2022-03-12 18:52] LABS: Adenovirus,PCR Not Detected (NotDetected); Bordetella Pertussis Not Detected (NotDetected); Chlamydophila Pneumoniae, PCR Not Detected (NotDetected); Coronavirus 19, PCR Not Detected (NotDetected); Coronavirus 229E Not Detected (NotDetected); Coronavirus NL63 Not Detected (NotDetected); Coronavirus OC43 Not Detected (NotDetected); Coronovirus HKU1,PCR Not Detected (NotDetected); Human Metapneumovirus Not Detected (NotDetected); Influenza A, PCR Not Detected (NotDetected); Influenza AH1, 2009 Not Detected (NotDetected); Influenza AH1, PCR Not Detected (NotDetected); Influenza AH3,PCR Not Detected (NotDetected); Influenza B, PCR Not Detected (NotDetected); Mycoplasma Pneumoniae, PCR Not Detected (NotDetected); Parainfluenza 1, PCR Not Detected (NotDetected); Parainfluenza 2, PCR Not Detected (NotDetected); Parainfluenza 3, PCR Not Detected (NotDetected); Parainfluenza 4, PCR Not Detected (NotDetected); Respiratory Syncytial Virus Not Detected (NotDetected); Rhinovirus/Enterovirus Not Detected (NotDetected)
== END 2022-03-12 18:44 | disposition home or self-care (01) ==
PROVIDERS: Emergency Provider Nurse Practitioner Family; PCP Nurse Practitioner Family
DX: J02.9 Acute pharyngitis, unspecified (principal); H92.09 Otalgia, unspecified ear; B34.9 Viral infection, unspecified
CPT/HCPCS: 87581; 87632; 87798; 87880; 99212; C9803; G0463; U0003; U0005

== ENCOUNTER 2023-12-01 09:04 | Emergency (ER) | payer BC, OTHER, SELFPAY ==
[2023-12-01] VITALS (15 sets, daily range): BP systolic 101–122; BP diastolic 56–94; PULSE 52–82; RESP 14–100; TEMP 36.6–36.7; O2SAT 96–100; BMI 28.1
--- NOTE | 2023-12-01 09:11 | ECG_ITS ---
APPROVED REPORT Exam: Resting ECG HR:67 bpm ECG Measurements Heart Rate 67 AXES NH 128 P 50 QRSd 85 QRS 76 QT 390 T 62 QTc 406 Conclusion SINUS RHYTHM WITH SINUS ARRHYTHMIA NORMAL ECG UNCONFIRMED REPORT Electronically signed by : FROY FRENCH, 12/01/2023 13:27:15
--- NOTE | 2023-12-01 09:18 | PC.NURSE ---
DR FRENCH AT BEDSIDE
--- NOTE | 2023-12-01 09:21 | CT_ITS ---
FINAL REPORT TECHNIQUE: Thin section axial images were obtained from the lung apices through the upper abdomen without contrast. This study was performed with techniques to keep radiation doses as low as reasonably achievable (ALARA). Individualized dose reduction techniques using automated exposure control or adjustment of mA and/or kV according to the patient's size were employed. CLINICAL HISTORY: R rib pain, possible fx COMPARISON: None FINDINGS: There is no axillary lymphadenopathy. There is a high right paratracheal lymph node measuring 12 mm. There are several additional borderline size mediastinal lymph nodes. There is no hilar lymphadenopathy. There are trace bilateral pleural effusions.. There is bilateral lower lobe atelectasis. There are no suspicious nodules or masses. No pneumothorax.. Limited, unenhanced evaluation of the upper abdomen is without acute abnormality. There is no acute osseous abnormality. No right rib fractures identified. IMPRESSION: Trace bilateral pleural effusions and associated atelectasis. Otherwise, no acute findings. Reviewed, Interpreted and Dictated by Karissa Ferrer MD Transcribed by Estephania Haynes Authenticated and [facility]
--- NOTE | 2023-12-01 09:23 | ED_ITS ---
Discharge Plan Disposition Patient Disposition: Home, Self-Care Condition: Good Prescriptions Prescriptions: New acetaminophen [Tylenol Extra Strength] 500 mg tablet 1,000 mg PO Q6H PRN (Reason: pain) 3 Days Qty: 20 0RF ibuprofen 600 mg tablet 600 mg PO Q6H PRN (Reason: pain) 3 Days Qty: 12 0RF lidocaine 5 % adhesive patch,medicated 1 patch topical DAILY PRN (Reason: pain) 3 Days Qty: 15 0RF Rx Instructions: leave on most painful area for up to 12 hrs No Action benzonatate [benzonatate] 100 mg capsule 100 mg PO TIDP PRN (Reason: Cough) Qty: 30 0RF ondansetron 4 mg Tablet,Disintegrating 4 mg PO Q8H PRN (Reason: Nausea) Qty: 20 0RF ondansetron 4 MG tablet,disintegrating 4 mg PO TIDP PRN (Reason: Nausea) Qty: 12 0RF dicyclomine 10 MG capsule 10 mg PO TID PRN (Reason: Cramping) Qty: 15 0RF metronidazole 500 MG tablet 500 mg PO BID Qty: 14 0RF promethazine 25 mg Tablet 25 mg PO Q6H PRN (Reason: Nausea And Vomiting) Qty: 20 0RF Paxlovid 300 mg (150 mg x 2)-100 mg tablet See Rx Instructions PO .COMPLEX Qty: 30 0RF Rx Instructions: take TWO 150 mg tablets of nirmatrelvir with ONE 100 mg tablet of ritonavir twice daily for 5 days benzonatate [benzonatate] 100 mg capsule 100 mg PO TIDP PRN (Reason: Cough) Qty: 30 0RF ibuprofen [IBU] 800 mg tablet 800 mg PO Q8HP PRN (Reason: Moderate Pain) Qty: 30 0RF Referrals Follow up/Referrals: Provider,Referral, MD [Referring] - See instructions Activity Restrictions/Add. Instructions Additional Instructions/Restrictions: You have been evaluated in the ED for your complaints. You may follow-up with your PCP in the next 3 to 5 days. Please return to ED for any new or worsening symptoms. Please take Tylenol and Motrin as needed for your rib pain. I have also ordered for lidocaine patches to further assess. Clinical Impressions Clinical Impression: Rib pain on right side, Bilateral pleural effusion Stand Alone Forms Stand Alone Forms: Work/School Release Discharge ED Provider: Loz[place] General Adult HPI General Chief complaint: PAIN Stated complaint: side and lower back pain, soa Time Seen by Provider: 12/01/23 09:12 History of Present Illness HPI narrative: 43-year-old female with past medical history significant for urolithiasis, migraines, COPD, presents today for evaluation concerning right-sided rib pain that has been present over the past week. Patient states that last week she leaned over a pool rail causing injury to her right ribs. She did not get seen by provider after the incident and states that her symptoms were improving until last night when she did not sleep in a reclined position as she usually has been. States that her rib pain has worsened today and she has also had spasms. She denies having any fevers, chills, significant shortness of breath, abdominal pain, dysuria, hematuria or any other associated symptoms. No new injuries. No further complaints. Related Data Previous Rx's Medication Instructions Recorded dicyclomine 10 mg capsule 10 mg PO TID PRN Cramping #15 caps 05/21/21 ondansetron 4 mg disintegrating 4 mg PO TIDP PRN Nausea #12 tabs 05/21/21 tablet metronidazole 500 mg tablet 500 mg PO BID #14 tabs 12/19/21 benzonatate 100 mg capsule 100 mg PO TIDP PRN Cough #30 caps 01/12/22 nirmatrelvir 300 mg (150 mg See Rx Instructions PO .COMPLEX 01/12/22 x2)-ritonavir 100 mg tablet,dose #30 tabs pack (Paxlovid) promethazine 25 mg tablet 25 mg PO Q6H PRN Nausea And 01/12/22 Vomiting #20 tabs ibuprofen 800 mg tablet (IBU) 800 mg PO Q8HP PRN Moderate Pain 01/29/22 #30 tabs benzonatate 100 mg capsule 100 mg PO TIDP PRN Cough #30 caps 03/12/22 ondansetron 4 mg disintegrating 4 mg PO Q8H PRN Nausea #20 tabs 03/12/22 tablet acetaminophen 500 mg tablet 1,000 mg (2 x 500 mg) PO Q6H PRN 12/01/23 (Tylenol Extra Strength) pain 3 days #20 tabs ibuprofen 600 mg tablet 600 mg PO Q6H PRN pain 3 days #12 12/01/23 tabs lidocaine 5 % topical patch 1 patch topical DAILY PRN pain 3 12/01/23 days #15 ea Allergies Allergy/AdvReac Type Severity Reaction Status Date / Time codeine Allergy Verified 01/29/22 17:56 Penicillins Allergy Verified 01/29/22 17:56 [facility] Disclaimer: The information contained in this section may have been updated after the patient was seen, as this information can be updated by other users. Social History Smoking Status: Current every day smoker tobacco type: cigarettes packs per day: 1 second hand exposure: No alcohol intake: never substance use type: denies use current occupational status: other Travel in the last 8 weeks: None household members: other housing: other ROS Obtained: Yes All systems reviewed & no additional complaints except as documented Physical Exam General General appearance: alert and in no apparent distress Head Head exam: atraumatic and normocephalic Eye Eye exam: Present normal appearance, PERRL and EOMI ENT ENT exam: Present normal oropharynx and mucous membranes moist Neck Neck exam: Present full ROM; Absent meningismus Chest Chest inspection: Present normal inspection, symmetric chest wall rise and tenderness (Reproducible tenderness to palpation over the right ribs.) Respiratory Respiratory exam: Absent respiratory distress, wheezes, stridor or accessory muscle use Cardiovascular Cardiovascular exam: Present normal rhythm Abdominal Exam Abdominal exam: Present soft; Absent distention, tenderness, guarding, rebound or rigidity Neurological Exam Neurological exam: Present alert, oriented X3 and CN II-XII intact; Absent motor sensory deficit Psychiatric Psychiatric exam: Present normal affect and normal mood Skin Skin exam: Present warm and dry Medical Decision Making Medical Records Medical records reviewed: Yes I reviewed the patient's medical records. Yasir Inquiry Pt receiving controlled substance: No Yasir was queried for this patient: No Vital Signs: 12/01/23 09:05 12/01/23 09:24 12/01/23 09:25 Temperature 97.9 F Temperature Source Oral Pulse Rate 52 L 63 Pulse Rate [Apical] 70 Respiratory Rate 18 15 16 Blood Pressure 107/65 L 121/67 Blood Pressure [Right Arm] 110/59 L Blood Pressure Mean Blood Pressure Mean [Right Arm] 76 Blood Pressure Source Blood Pressure Source [Right Arm] Automatic Cuff Blood Pressure Position Blood Pressure Position [Right Arm] Sitting 02 Sat by Pulse Oximetry 100 100 96 Oxygen Delivery Method Room Air 12/01/23 09:35 12/01/23 09:40 12/01/23 09:50 Temperature Temperature Source Pulse Rate Pulse Rate [Apical] Respiratory Rate 24 16 16 Blood Pressure 105/57 L 103/62 L 118/94 H Blood Pressure [Right Arm] Blood Pressure Mean Blood Pressure Mean [Right Arm] Blood Pressure Source Blood Pressure Source [Right Arm] Blood Pressure Position Blood Pressure Position [Right Arm] 02 Sat by Pulse Oximetry Oxygen Delivery Method 12/01/23 10:00 12/01/23 10:05 12/01/23 10:15 Temperature Temperature Source Pulse Rate Pulse Rate [Apical] Respiratory Rate 21 14 21 Blood Pressure 111/66 113/68 109/67 L Blood Pressure [Right Arm] Blood Pressure Mean 83 Blood Pressure Mean [Right Arm] Blood Pressure Source Blood Pressure Source [Right Arm] Blood Pressure Position Blood Pressure Position [Right Arm] 02 Sat by Pulse Oximetry Oxygen Delivery Method 12/01/23 10:20 12/01/23 10:30 12/01/23 11:31 Temperature Temperature Source Pulse Rate 82 80 78 Pulse Rate [Apical] Respiratory Rate 15 Blood Pressure 102/58 L 101/56 L 117/71 Blood Pressure [Right Arm] Blood Pressure Mean 65 81 Blood Pressure Mean [Right Arm] Blood Pressure Source Blood Pressure Source [Right Arm] Blood Pressure Position Blood Pressure Position [Right Arm] 02 Sat by Pulse Oximetry 96 98 96 Oxygen Delivery Method Room Air Room Air Room Air 12/01/23 12:01 12/01/23 12:30 12/01/23 12:53 Temperature 98.0 F Temperature Source Oral Pulse Rate 80 79 55 L Pulse Rate [Apical] Respiratory Rate 100 H Blood Pressure 122/68 116/68 116/68 Blood Pressure [Right Arm] Blood Pressure Mean 81 76 Blood Pressure Mean [Right Arm] Blood Pressure Source Automatic Cuff Blood Pressure Source [Right Arm] Blood Pressure Position Sitting Blood Pressure Position [Right Arm] 02 Sat by Pulse Oximetry 98 97 Oxygen Delivery Method Room Air Room Air Room Air Lab Data Lab Results 12/01/23 12:30: Troponin I < 0.01 12/01/23 : WBC 7.4, RBC 4.19 L, Hgb 12.9, Hct 39.0, MCV 93.1, MCH 30.9, MCHC 33.2, RDW 14.6, Plt Count 271, MPV 9.2, Neut % (Auto) 69.4, Lymph % (Auto) 22.9, [place] % (Auto) 4.9, Eos % (Auto) 2.1, Baso % (Auto) 0.7, Neut # (Auto) 5.2, Lymph # (Auto) 1.7, [place] # (Auto) 0.4, Eos # (Auto) 0.2, Baso # (Auto) 0.1, Sodium 140, Potassium 4.1, Chloride 110 H, Carbon Dioxide 24, Anion Gap 10.1, BUN 17, Creatinine 0.80, Estimated Creat Clear 120, Estimated GFR 78, Est GFR ( Amer) 95, Glucose 75, Calcium 9.4, Total Bilirubin 0.4, AST 33, ALT 42, Alkaline Phosphatase 52, Troponin I < 0.01, Total Protein 7.5, Albumin 4.3, Globulin 3.2, Albumin/Globulin Ratio 1.3, Serum HCG, Qual Negative 12/01/23 Unknown 12/01/23 Unknown Orders (Tests/Meds): ED MEDICATIONS Discontinued Medications Generic Name Dose Route Start Last Admin Trade Name Cedric PRN Reason Stop Dose Admin Acetaminophen 1,000 mg 12/01/23 09:21 12/01/23 09:47 Acetaminophen 500mg Tab PO 12/01/23 09:22 1,000 mg ONCE ONE Administration Ketorolac Tromethamine 30 mg 12/01/23 09:21 12/01/23 09:47 Ketorolac 30mg/Ml Vial IV 12/01/23 09:22 30 mg ONCE ONE Administration Lidocaine 1 each 12/01/23 09:21 12/01/23 09:48 Lidocaine 5% Transdermal Patch TP 12/01/23 09:22 1 each ONCE ONE Administration Methocarbamol 750 mg 12/01/23 09:22 12/01/23 09:48 Methocarbamol 500mg Tablet PO 12/01/23 09:23 750 mg ONCE ONE Administration ORDERS Category Date Time Status CT chest wo con Stat Cat Scan 12/01/23 09:21 Completed CBC w/Auto Diff [Complete Blood Count Auto Diff] Stat Lab 12/01/23 Completed CMP [Comprehensive Metabolic Panel] Stat Lab 12/01/23 Completed Serum [HCG Qualitative, Serum] Stat Lab 12/01/23 Completed Trop I [Troponin I] Stat Lab 12/01/23 Completed Troponin I Q3H Lab 12/01/23 12:30 Completed Medical Decision Narrative: 43-year-old female with past medical history significant for urolithiasis, migraines, COPD, presents today for evaluation concerning right-sided rib pain that has been present over the past week. Patient states that last week she leaned over a pool rail causing injury to her right ribs. She did not get seen by provider after the incident and states that her symptoms were improving until last night when she did not sleep in a reclined position as she usually has been. States that her rib pain has worsened today and she has also had spasms. On assessment she was hemodynamically stable and in no acute distress. Afebrile. Her chest was clear to auscultation bilaterally. Her abdomen was soft nondistended and nontender to palpation. She did have reproducible tenderness to palpation over the right ribs. Differential diagnoses include not limited to rib fracture, muscle strain, ACS, among others. EKG was personally interpreted by me and was remarkable for sinus rhythm with sinus arrhythmia, rate of 67 bpm. No ischemic changes. Labs today have been nonactionable. Initial and second troponin less than 0.01. CT chest showed trace bilateral pleural effusions but no other acute findings. On reassessment she remained hemodynamically stable and in no acute distress with well-controlled pain after Tylenol, Toradol, Robaxin and lidocaine patch. I discussed ED workup and results as well as current plan to discharge with supportive care measures. Provided her with return precautions and instructions on follow-up. She verbalized understanding and agreement. Subsequently discharged hemodynamically stable and in no acute distress. Critical Care Critical Care Time Critical Care Time: No
[2023-12-01 09:37] LABS: Basophils # 0.1 K/mm3 (0-0.2); Basophils % 0.7 % (0.1-2.0); Chloride 110 mmol/L (98-107); Eosinophils # 0.2 K/mm3 (0.0-0.4); Eosinophils % 2.1 % (0.1-12.0); Hemoglobin 12.9 g/dL (12.2-16.2); Lymphocytes # 1.7 K/mm3 (0.7-4.5); Lymphocytes % 22.9 % (10-50); Mean Corpuscular HGB Conc 33.2 g/dL (31.8-35.4); Mean Corpuscular Hemoglobin 30.9 pg (27.0-31.2); Mean Corpuscular Volume 93.1 fl (81-99); Mean Platelet Volume 9.2 fl (7.4-10.4); Monocytes # 0.4 K/mm3 (0.1-1.0); Monocytes % 4.9 % (1.7-9.3); Neutrophils # 5.2 K/mm3 (1.8-7.8); Neutrophils % 69.4 % (37.0-80.0); Platelet Count 271 K/mm3 (142-424); Potassium 4.1 mmoL/L (3.5-5.1); Red Blood Count 4.19 M/mm3 (4.20-5.40); Red Cell Distribution Width 14.6 % (11.5-17.5); Sodium 140 mmol/L (136-145); White Blood Count 7.4 K/mm3 (4.8-10.8)
[2023-12-01 09:39] LABS: Alanine Aminotransferase 42 U/L (12-78); Aspartate Amino Transferase 33 U/L (14-36); Blood Urea Nitrogen 17 mg/dl (7-17); Creatinine Clearance Estimated 120 mL/min (50-200); Estimated Glomerular Filt Rate 78 ml/min (>60); GFR (African American) 95 ML/MIN (>60)
[2023-12-01 09:40] LABS: Albumin Level 4.3 g/dl (3.5-5.0); Albumin/Globulin Ratio 1.3 (1.1-1.8); Alkaline Phosphatase 52 U/L (38-126); Anion Gap 10.1 mEq/L (5-15); Bilirubin,Total 0.4 mg/dl (0.2-1.3); Calcium 9.4 mg/dl (8.4-10.2); Carbon Dioxide 24 mmol/L (22.0-30.0); Globulin 3.2 g/dL (1.3-3.2); Glucose 75 mg/dl (74-100); Total Protein,Serum 7.5 g/dl (6.3-8.2)
[2023-12-01] MEDS: ACETAMINOPHEN 500MG TAB 1000 MG PO (09:47)
[2023-12-01] MEDS: KETOROLAC 30MG/ML VIAL 30 MG IV (09:47)
[2023-12-01] MEDS: METHOCARBAMOL 500MG TABLET 750 MG PO (09:48)
[2023-12-01] MEDS: LIDOCAINE 5% TRANSDERMAL PATCH 1 EACH TP (09:48)
[2023-12-01 09:54] LABS: Troponin I < 0.01 ng/ml (0.00-0.034)
--- NOTE | 2023-12-01 09:54 | PC.NURSE ---
PT MEDICATED PER EMAR, WARM BLANKET PROVIDED. CALL LIGHT WITHIN REACH
[2023-12-01 11:12] LABS: HCG Qualitative, Serum Negative (Negative)
--- NOTE | 2023-12-01 12:35 | PC.NURSE ---
pt was given a warm blanket and turned light off no other needs at this time
[2023-12-01 13:24] LABS: Troponin I < 0.01 ng/ml (0.00-0.034)
== END 2023-12-01 12:59 | disposition home or self-care (01) ==
PROVIDERS: Emergency Provider Emergency Medicine; PCP Nurse Practitioner
DX: R07.81 Pleurodynia (principal); J90 Pleural effusion, not elsewhere classified; R25.2 Cramp and spasm; F17.210 Nicotine dependence, cigarettes, uncomplicated; J44.9 Chronic obstructive pulmonary disease, unspecified
CPT/HCPCS: 71250; 80053; 84484; 84703; 85025; 93005; 96374; 99284; J1885

== ENCOUNTER 2024-01-23 10:39 | Emergency (ER) | payer BC, OTHER, SELFPAY ==
[2024-01-23 10:41] VITALS: BP 109/43; PULSE 82; RESP 20; TEMP 36.5; O2SAT 100; BMI 27.3
[2024-01-23 10:46] VITALS: BP 109/43; PULSE 93; RESP 20; O2SAT 98
--- NOTE | 2024-01-23 10:58 | PC.NURSE ---
sent nasal swab
[2024-01-23 11:00] VITALS: BP 97/60; PULSE 88; RESP 18; O2SAT 96
--- NOTE | 2024-01-23 11:03 | XR_ITS ---
PROCEDURE INFORMATION: Exam: XR Chest Exam date and time: 01/23/2024 11:02 AM Age: 43 years old Clinical indication: Cough and fever and shortness of breath; Additional info: Cough, fever body aches, worsening with copd TECHNIQUE: Imaging protocol: Radiologic exam of the chest. Views: 2 views. COMPARISON: CT CHEST WO CON 12/01/2023 11:23 AM FINDINGS: Lungs: Patchy airspace opacity in the lingula, likely pneumonia. Pleural spaces: Unremarkable. No pleural effusion. No pneumothorax. Heart/Mediastinum: Unremarkable. No cardiomegaly. Bones/joints: Unremarkable. IMPRESSION: Patchy airspace opacity in the lingula, likely pneumonia.
[2024-01-23 11:09] LABS: Coronavirus 19, PCR Not Detected (NotDetected); Influenza A, PCR Not Detected (NotDetected); Influenza B, PCR Not Detected (NotDetected)
--- NOTE | 2024-01-23 11:13 | HMH.EDGENADL ---
Discharge Plan Disposition Patient Disposition: Home, Self-Care Prescriptions Prescriptions: New cefdinir 300 mg capsule 300 mg PO BID 7 Days Qty: 14 0RF azithromycin 500 mg tablet 500 mg PO DAILY 3 Days Qty: 3 0RF Rx Instructions: start on day 2 of therapy No Action benzonatate [benzonatate] 100 mg capsule 100 mg PO TIDP PRN (Reason: Cough) Qty: 30 0RF ondansetron 4 mg Tablet,Disintegrating 4 mg PO Q8H PRN (Reason: Nausea) Qty: 20 0RF acetaminophen [Tylenol Extra Strength] 500 mg tablet 1,000 mg PO Q6H PRN (Reason: pain) 3 Days Qty: 20 0RF ibuprofen 600 mg tablet 600 mg PO Q6H PRN (Reason: pain) 3 Days Qty: 12 0RF lidocaine 5 % adhesive patch,medicated 1 patch topical DAILY PRN (Reason: pain) 3 Days Qty: 15 0RF Rx Instructions: leave on most painful area for up to 12 hrs ondansetron 4 MG tablet,disintegrating 4 mg PO TIDP PRN (Reason: Nausea) Qty: 12 0RF dicyclomine 10 MG capsule 10 mg PO TID PRN (Reason: Cramping) Qty: 15 0RF metronidazole 500 MG tablet 500 mg PO BID Qty: 14 0RF promethazine 25 mg Tablet 25 mg PO Q6H PRN (Reason: Nausea And Vomiting) Qty: 20 0RF Paxlovid 300 mg (150 mg x 2)-100 mg tablet See Rx Instructions PO .COMPLEX Qty: 30 0RF Rx Instructions: take TWO 150 mg tablets of nirmatrelvir with ONE 100 mg tablet of ritonavir twice daily for 5 days benzonatate [benzonatate] 100 mg capsule 100 mg PO TIDP PRN (Reason: Cough) Qty: 30 0RF ibuprofen [IBU] 800 mg tablet 800 mg PO Q8HP PRN (Reason: Moderate Pain) Qty: 30 0RF Referrals Follow up/Referrals: Vernell Pate APRN [Primary Care Provider] - See instructions Activity Restrictions/Add. Instructions Additional Instructions/Restrictions: Call your family doctor to establish care for this visit to the emergency department and schedule follow-up within 48 hours to ensure improvement. If you have any worsening of your condition or any other concerning signs or symptoms, return to the emergency department or your primary care doctor for further evaluation. Cefdinir twice daily for 7 days, azithromycin each morning for the next 3 days. Clinical Impressions Clinical Impression: Pneumonia Print Language Print Language: Mongolian Discharge ED Provider: Doug Romero General Adult HPI General Chief complaint: Upper Respiratory Infection Stated complaint: SOA, Pain in lungs, cough, headache, body ache, Time Seen by Provider: 01/23/24 10:53 Mode of Arrival: Ambulatory Source of Information: Patient Limitations: No Limitations Description of Symptoms (Recalled from ER Triage Doc. by RN): Complaint of cough, congestion and increased shortness of breath. States that she was COVID tested last week and was told it was inconclusive. States that she is just getting worse. History of Present Illness HPI narrative: Please note that above description of symptoms, in this electronic medical record under categorization of recalled from ER triage doctor by RN are reflective of an initial nursing assessment, however, is not reflective of my full history and physical exam that was personally taken and clarified. Consequentially, this preceding description of symptoms, which may include the patient's categorized chief complaint in the EMR, do not reflect my personal clinical impression, and the ultimate description of history of present illness and patient stated complaints should be deferred to this section of the note. Unless stated otherwise or congruent with this section of the note, additional signs, symptoms, or incongruence should be interpreted as inaccurate with my clinical impression. Related Data Previous Rx's ?Medication ?Instructions ?Recorded dicyclomine 10 mg capsule 10 mg PO TID PRN Cramping #15 caps 05/21/21 ondansetron 4 mg disintegrating 4 mg PO TIDP PRN Nausea #12 tabs 05/21/21 tablet metronidazole 500 mg tablet 500 mg PO BID #14 tabs 12/19/21 benzonatate 100 mg capsule 100 mg PO TIDP PRN Cough #30 caps 01/12/22 nirmatrelvir 300 mg (150 mg See Rx Instructions PO .COMPLEX 01/12/22 x2)-ritonavir 100 mg tablet,dose #30 tabs pack (Paxlovid) promethazine 25 mg tablet 25 mg PO Q6H PRN Nausea And 01/12/22 Vomiting #20 tabs ibuprofen 800 mg tablet (IBU) 800 mg PO Q8HP PRN Moderate Pain 01/29/22 #30 tabs benzonatate 100 mg capsule 100 mg PO TIDP PRN Cough #30 caps 03/12/22 ondansetron 4 mg disintegrating 4 mg PO Q8H PRN Nausea #20 tabs 03/12/22 tablet acetaminophen 500 mg tablet 1,000 mg (2 x 500 mg) PO Q6H PRN 12/01/23 (Tylenol Extra Strength) pain 3 days #20 tabs ibuprofen 600 mg tablet 600 mg PO Q6H PRN pain 3 days #12 12/01/23 tabs lidocaine 5 % topical patch 1 patch topical DAILY PRN pain 3 12/01/23 days #15 ea azithromycin 500 mg tablet 500 mg PO DAILY 3 days #3 tabs 01/23/24 cefdinir 300 mg capsule 300 mg PO BID 7 days #14 caps 01/23/24 Allergies Allergy/AdvReac Type Severity Reaction Status Date / Time codeine Allergy Verified 01/29/22 17:56 Penicillins Allergy Verified 01/29/22 17:56 [facility] Disclaimer: The information contained in this section may have been updated after the patient was seen, as this information can be updated by other users. Social History Smoking Status: Current every day smoker tobacco type: cigarettes packs per day: 1 second hand exposure: No alcohol intake: never substance use type: denies use current occupational status: other Travel in the last 8 weeks: None household members: other housing: other ROS Obtained: Yes All systems reviewed & no additional complaints except as documented Physical Exam General General appearance: alert, in no apparent distress and other (Uncomfortable.) Head Head exam: atraumatic and normocephalic Eye Eye exam: Present normal appearance, PERRL and EOMI Neck Neck exam: Present normal inspection, full ROM and trachea midline Respiratory Respiratory exam: Present other (Decreased breath sounds right lower lung tang posteriorly); Absent respiratory distress, wheezes, stridor, accessory muscle use or prolonged expiratory phase Cardiovascular Cardiovascular exam: Present regular rate, normal rhythm and other (Pulses equal symmetric in upper and lower extremities) Abdominal Exam Abdominal exam: Present soft; Absent distention, tenderness or pulsatile mass Extremities Exam Extremities exam: Absent edema Neurological Exam Neurological exam: Present alert, oriented X3 and CN II-XII intact; Absent motor sensory deficit Skin Skin exam: Present warm and dry; Absent diaphoresis or erythema Medical Decision Making Medical Records Medical records reviewed: Yes I reviewed the patient's medical records. Yasir Inquiry Pt receiving controlled substance: No Yasir was queried for this patient: No Vital Signs: 01/23/24 10:41 01/23/24 10:46 01/23/24 11:00 Temperature 97.7 F Temperature Source Oral Pulse Rate 93 H 88 Pulse Rate [Radial] 82 Respiratory Rate 20 20 18 Blood Pressure 109/43 L 97/60 L Blood Pressure [Right Arm] 109/43 L Blood Pressure Mean [Right Arm] 65 Blood Pressure Source Blood Pressure Source [Right Arm] Automatic Cuff Blood Pressure Position Blood Pressure Position [Right Arm] Sitting 02 Sat by Pulse Oximetry 100 98 96 Oxygen Delivery Method Room Air Room Air Room Air 01/23/24 13:05 Temperature 97.7 F Temperature Source Oral Pulse Rate 88 Pulse Rate [Radial] Respiratory Rate 18 Blood Pressure 97/60 L Blood Pressure [Right Arm] Blood Pressure Mean [Right Arm] Blood Pressure Source Automatic Cuff Blood Pressure Source [Right Arm] Blood Pressure Position Sitting Blood Pressure Position [Right Arm] 02 Sat by Pulse Oximetry Oxygen Delivery Method Room Air Lab Data Lab Results 01/23/24 10:57: SARS-CoV-2 (PCR) Not detected, Influenza A Untype (PCR) Not detected, Influenza Type B (PCR) Not detected 01/23/24 11:03: VBG pH 7.31, VBG pCO2 40.2, VBG pO2 35.7, VBG HCO3 19.9 L, VBG Total CO2 21.2 L, VBG O2 Saturation 66.4, VBG Base Excess -6.3 L, VBG Lactic Acid 2.0 01/23/24 11:19: WBC 4.5 L, RBC 4.70, Hgb 13.7, Hct 44.2, MCV 94.0, MCH 29.1, MCHC 31.0 L, RDW 13.5, Plt Count 252, MPV 8.6, Neut % (Auto) 43.5, Lymph % (Auto) 41.4, [place] % (Auto) 11.3 H, Eos % (Auto) 2.5, Baso % (Auto) 1.3, Neut # (Auto) 1.9, Lymph # (Auto) 1.8, [place] # (Auto) 0.5, Eos # (Auto) 0.1, Baso # (Auto) 0.1, Sodium 139, Potassium 3.5, Chloride 108 H, Carbon Dioxide 27, Anion Gap 7.5, BUN 13, Creatinine 0.90, Estimated Creat Clear 107, Estimated GFR 68, Est GFR ( Amer) 83, Glucose 85, Calcium 9.0, Total Bilirubin 0.4, AST 38 H, ALT 38, Alkaline Phosphatase 63, Troponin I < 0.01, NT-Pro-B Natriuret Pep 20.9, Total Protein 7.6, Albumin 4.3, Globulin 3.3 H, Albumin/Globulin Ratio 1.3 01/23/24 11:19 01/23/24 11:19 Orders (Tests/Meds): ED MEDICATIONS Discontinued Medications Generic Name Dose Route Start Last Admin Trade Name Cedric PRN Reason Stop Dose Admin Acetaminophen 1,000 mg 01/23/24 11:05 01/23/24 11:25 Acetaminophen 1,000mg/100ml Vial IV 01/23/24 11:06 1,000 mg ONCE ONE Administration Lactated Ringer's 1,000 mls @ 999 mls/hr 01/23/24 11:05 01/23/24 11:25 Lactated Ringer's 1000 Ml Bag IV 01/23/24 12:05 999 mls/hr .Q1H1M ONE Administration Ceftriaxone Sodium 2 gm/ 100 mls @ 200 mls/hr 01/23/24 11:16 01/23/24 11:24 Sodium Chloride IV 01/23/24 11:45 200 mls/hr ONCE ONE Administration Ketorolac Tromethamine 15 mg 01/23/24 11:05 01/23/24 11:25 Ketorolac 30mg/Ml Vial IV 01/23/24 11:06 15 mg ONCE ONE Administration ORDERS Category Date Time Status CXR 2 view (NOT portable) [XR chest 2V] Stat Exams 01/23/24 11:03 Completed CBC w/Auto Diff [Complete Blood Count Auto Diff] Stat Lab 01/23/24 11:19 Completed CMP [Comprehensive Metabolic Panel] Stat Lab 01/23/24 11:19 Completed NT Pro Brain Natriuretic Pep. Stat Lab 01/23/24 11:19 Completed Rapid PCR Covid and Flu A/B Stat Lab 01/23/24 10:57 Completed Trop I [Troponin I] Stat Lab 01/23/24 11:19 Completed Blood Culture Stat Micro 01/23/24 11:19 Received VBG [Venous Blood Gas] Stat RT 01/23/24 11:03 Completed Medical Decision Narrative: 43-year-old female history of COPD still smoking not on home oxygen presenting with general malaise. Patient states that she was sick about 2 weeks ago with COVID virus. States that starting a couple days prior to this on Thursday, 01/18, she began having fevers again. Fevers have been just about daily since that time, now having bodyaches, waking up from puddles of sweat, nausea without vomiting and productive cough. She has been swallowing the sputum, has not looked at it to see what color it is. Tried Tylenol Motrin, there is helped modestly, but pain and bodyaches come back when it wears off of course. Has not done breathing treatments at home, does not have them available. History was obtained via conversation with patient. On arrival, patient hemodynamically stable, alert, oriented x4, appropriate, GCS 15, moving all extremities spontaneously, pupils equal and reactive to light. Full physical exam performed and significant for uncomfortable appearing female who is in no acute distress. Intermittently coughing. Lungs are clear to auscultation bilaterally anterior and posteriorly, but she does have decreased breath sounds in right lower lung tang posteriorly. Nontachycardic, mildly hypotensive. Differential includes bronchitis, pneumonia, sepsis, pneumothorax, pericarditis, myocarditis, among others. Patient placed on continuous cardiac monitoring and continuous pulse ox with initial blood pressure 109/43, heart rate 82, saturation under percent on room air. Patient was given 2 g ceftriaxone IV for symptomatic management and correction of underlying abnormalities. Workup independently interpreted and significant for nonactionable hematologic labs or VBG. Chemistry nonactionable. Chest x-ray with concern for left lingular lobe pneumonia on independent interpretation of imaging. See radiology read for full review of final results. On reevaluation, patient feeling much better after some fluids and antibiotics. Conversation had regarding home-going versus staying, patient wants to go home and trial oral antibiotics, I feel this is appropriate given no oxygen need, well appearance and improvement of symptoms. Because patient at baseline without signs or symptoms of clinical decompensation, deemed appropriate for discharge. Results were relayed to patient who voiced understanding and were agreeable to outpatient management and follow up. I discussed my clinical impression with patient and answered all questions. At this time, the evidence for any other entities in the differential is insufficient to warrant any further testing or ED observation. This was explained as well. Advisory was given that persistent or worsening symptoms require further evaluation. I confirmed the understanding of this discussion. Churn Driller disclaimer Much of this encounter note is an electronic drapery rod assembler spoken language to printed text. Electronic drapery rod assembler of the spoken language may permit errors. Although I have reviewed the note, some errors may still exist. Critical Care Critical Care Time Critical Care Time: No
[2024-01-23] MEDS: CEFTRIAXONE SODIUM 2 GM in 0.9 % SODIUM CHLORIDE 100 ML IV (11:24)
[2024-01-23] MEDS: KETOROLAC 30MG/ML VIAL 15 MG IV (11:25)
[2024-01-23] MEDS: LACTATED RINGERS 1000ML 1,000 ML 999 ML IV (11:25)
[2024-01-23] MEDS: ACETAMINOPHEN 1,000MG/100ML VIAL 1000 MG IV (11:25)
[2024-01-23 11:33] LABS: Basophils # 0.1 K/mm3 (0-0.2); Basophils % 1.3 % (0.1-2.0); Eosinophils # 0.1 K/mm3 (0.0-0.4); Eosinophils % 2.5 % (0.1-12.0); Hematocrit 44.2 % (37.0-47.0); Hemoglobin 13.7 g/dL (12.2-16.2); Lymphocytes # 1.8 K/mm3 (0.7-4.5); Lymphocytes % 41.4 % (10-50); Mean Corpuscular Hemoglobin 29.1 pg (27.0-31.2); Mean Platelet Volume 8.6 fl (7.4-10.4); Monocytes # 0.5 K/mm3 (0.1-1.0); Monocytes % 11.3 % (1.7-9.3); Neutrophils # 1.9 K/mm3 (1.8-7.8); Neutrophils % 43.5 % (37.0-80.0); Platelet Count 252 K/mm3 (142-424); Red Cell Distribution Width 13.5 % (11.5-17.5); White Blood Count 4.5 K/mm3 (4.8-10.8)
[2024-01-23 11:34] LABS: Albumin Level 4.3 g/dl (3.5-5.0); Chloride 108 mmol/L (98-107); Potassium 3.5 mmoL/L (3.5-5.1); Sodium 139 mmol/L (136-145)
[2024-01-23 11:37] LABS: Alanine Aminotransferase 38 U/L (12-78); Albumin/Globulin Ratio 1.3 (1.1-1.8); Alkaline Phosphatase 63 U/L (38-126); Anion Gap 7.5 mEq/L (5-15); Aspartate Amino Transferase 38 U/L (14-36); Bilirubin,Total 0.4 mg/dl (0.2-1.3); Blood Urea Nitrogen 13 mg/dl (7-17); Carbon Dioxide 27 mmol/L (22.0-30.0); Creatinine Clearance Estimated 107 mL/min (50-200); Estimated Glomerular Filt Rate 68 ml/min (>60); GFR (African American) 83 ML/MIN (>60); Globulin 3.3 g/dL (1.3-3.2); Glucose 85 mg/dl (74-100); Total Protein,Serum 7.6 g/dl (6.3-8.2)
[2024-01-23 11:47] LABS: NT Pro Brain Natriuretic Pep. 20.9 pg/mL (0-125)
[2024-01-23 11:49] LABS: VBG Base Excess -6.3 mmol/L (-2.4-2.3); VBG HCO3 19.9 mmol/L (23-30); VBG Oxygen Saturation 66.4 % (50-70); VBG PCO2 40.2 mmol/L (35-51); VBG PH 7.31 mmol/L (7.31-7.41); VBG PO2 35.7 mmol/L (28-40); VBG Total CO2 21.2 mmol/L (23-27)
[2024-01-23 11:50] LABS: Troponin I < 0.01 ng/ml (0.00-0.034)
[2024-01-23 13:05] VITALS: BP 97/60; PULSE 88; RESP 18; TEMP 36.5; O2SAT 96
--- NOTE | 2024-01-24 09:58 | PC.NURSE ---
Pt called stating, I was seen yesterday and I have pneumonia. I was given the option to stay to receive IV antibiotics but I didn't and I probably should have. What should I do? I let pt know we would be glad to see her anytime for re-evaluation for admission.
== END 2024-01-23 13:06 | disposition home or self-care (01) ==
PROVIDERS: Emergency Provider Emergency Medicine; PCP Nurse Practitioner
DX: J18.9 Pneumonia, unspecified organism (principal); R51.9 Headache, unspecified; R06.02 Shortness of breath; R07.81 Pleurodynia; F17.210 Nicotine dependence, cigarettes, uncomplicated
CPT/HCPCS: 71046; 80053; 82803; 83880; 84484; 85025; 87040; 87636; 96361; 96365; 96375; 99285; J0131; J0696; J1885; J7120

== ENCOUNTER 2024-12-05 16:50 | Outpatient (CLI) | payer BC, OTHER, SELFPAY ==
--- NOTE | 2024-12-05 16:52 | MM_ITS ---
PROCEDURE INFORMATION: Exam: MG Bilateral Screening 3D Mammography Exam date and time: 12/05/2024 4:52 PM Age: 44 years old Clinical indication: Screening examination TECHNIQUE: Imaging protocol: Bilateral Screening tomosynthesis and 2D mammography including computer-aided detection (CAD) when performed. COMPARISON: No relevant prior studies available. FINDINGS: MAMMOGRAPHY: Breast composition: There are scattered areas of fibroglandular density. Mass: Circumscribed 0.8 cm mass in the lateral posterior aspect of the right breast, approximate 9 o'clock axis. Architectural distortion: None. Calcifications: No suspicious calcifications. Asymmetric density: None. Skin thickening: None. Axillary adenopathy: None. IMPRESSION: Patient to be recalled for spot compression views of the right breast in the CC and MLO projections, a full 90 degree lateral view, and right breast ultrasound for further evaluation of a right breast mass. ASSESSMENT: BI-RADS Category 0: Incomplete- Need Additional Imaging Evaluation.
--- OUTSIDE RECORDS SUMMARY | 2024-12-05 16:52 | XMS_ITS | Clinical Summary ---
Author Organization [facility] Address [address] [place] [address] Care Team Providers Care Executive Associate Name Role Phone Lidia Rice APRN Primary Care Provider [phone] Allergies Active Allergy Reactions Criticality Noted Date Comments Codeine Hallucinations 04/28/2022 Penicillins Hives 04/28/2022 Medications HYDROcodone-acetami nophen (NORCO) 5-325 MG per tabletIndications:K roseliayue easley Take 1 tablet by mouth Every 4 (Four) Hours As Needed for Moderate Pain. 10 tablet 2 Active ondansetron ODT (ZOFRAN-ODT) [address] 1 tablet on the tongue 4 (Four) Times a Day As Needed for Nausea or Vomiting. 15 tablet 2 Active Social History Tobacco Use Types Packs/Day Years Used Date Smoking Tobacco: Never Assessed Abuse Screen Answer Date Recorded Unsafe at Home or Work/School Not on file Feels Threatened by Someone? Not on file Does Anyone Keep You from Co ntacting Others or Doint Things Outside the Home? Not on file 05/04/2023 Physical Sign of Abuse Present Not on file 1 07/05/2022 Housing Stability Answer Date Recorded Current Living Arrangements Not on file 02/15 Potentially Unsafe Housing Conditions Not on jeni e 02/27/2023 Family and Community Support Answer Dillon e Recorded Help with Day-to-Day Activities Not on file 02/27/2023 Lonely or Isolated Not on file 02/27/2023 Employment Answer Date Recorded Do you want help finding or keeping work or a jarred b? Not on file 02/27/2023 Disabilities Answer Date Recorded Concentrating, Remembering, or Making Decisions Difficulty Not on file 02/27/2023 Doing Errands Independently Difficulty Not on fi le 02/27/2023 Education Answer Date Recorded Help with school or training? Not on file Preferred Language Not on file 02/27/2023 Comments No Sex and Gender Information Value Date Recorded Sex Assigned at Not on file Legal Sex Female 12:59 PM EST Gender Identity Not on file Sexual Orientation Not on file Last Filed Vital Signs Vital Sign Reading Time Taken Comments Blood Pressure 103/58 04/28/2022 3:00 PM EST Pulse 54 04/28/2022 1:09 PM EST Temperature 37.1 C (98.8 F) 04/28/2022 1:09 PM EST Respiratory Rate 14 04/28/2022 1:09 PM EST Oxygen Saturation 98% 04/28/2022 2:35 PM EST Inhaled Oxygen Concentration - - Weight 88.5 kg (195 lb) 04/28/2022 1:48 PM EST Height 172.7 cm (5' 8 ) 04/28/2022 1:48 PM EST Body Mass Index 29.65 04/28/2022 1:48 PM EST Plan of Treatment Health Maintenance Due Date Last Done Comments ANNUAL PHYSICAL 1980 Annual Gynecologic Pelvic an d Breast Exam 1980 HEPATITIS C SCREENING 1980 TDAP/TD VACCINES (3 - Td or Tdap) 03/25/2017 03/25/2007, 08/17/1995 MAMMOGRAM 2020 COVID-19 Vaccine (2023-2 5 season) 2024 INFLUENZA VACCINE 02/15/2025 Pneumococcal Vaccine 0-49 Aged Out No longer eligible based on patient's age to complete this topic Insurance [facility] PPO Member Subscriber Plan / Payer (Ef fective 2021-Present) Name:Monserrat Vaca Relation to Subscriber:Self Name:Monserrat Vaca Payer ID:[id number] (NAIC) Group ID:[id number] Type:Not on file Address: [address] Care Teams Executive Associate Relationship Specialty Start Date End Date Lidia Rice APRN PCP - General Internal Medicine 04/28/22
== END 2024-12-05 23:59 | disposition home or self-care (01) ==
LOC: RAD 16:50
PROVIDERS: PCP Nurse Practitioner; Visit Provider Family Medicine
DX: Z12.31 Encounter for screening mammogram for malignant neoplasm of breast (principal); N63.15 Unspecified lump in the right breast, overlapping quadrants; R92.323 Mammographic fibroglandular density, bilateral breasts
CPT/HCPCS: 77063; 77067

== ENCOUNTER 2024-12-19 13:46 | Outpatient (CLI) | payer BC, OTHER, SELFPAY ==
--- NOTE | 2024-12-19 | US_ITS ---
PROCEDURE INFORMATION: Exam: US Right Breast, Complete MG Right Diagnostic Breast Tomosynthesis Exam date and time: 12/19/2024 2:33 PM Age: 44 years old Clinical indication: Callback from screening for a right breast mass. TECHNIQUE: Imaging protocol: Complete ultrasound of all four quadrants of the right breast and the retroareolar regions, including ultrasound of the axilla when performed. Right Diagnostic tomosynthesis and 2D mammography including computer-aided detection (CAD) when performed. Unilateral or bilateral exam. COMPARISON: MG MM DIG MAMM DX UNILAT RT CAD 12/19/2024 2:02 PM FINDINGS: MAMMOGRAPHY: Breast composition: There are scattered areas of fibroglandular density. Breast mammogram findings: There is a persistent lobulated mass in the posterior aspect of the right lower breast that measures 0.9 cm. There is no associated distortion or suspicious calcifications. ULTRASOUND: Breast ultrasound findings: Ultrasound of the right lower outer quadrant demonstrates a hypoechoic non parallel mass at the 7 o'clock axis, 8 cm from the nipple that measures 0.7 x 0.6 x 0.5 cm. This is considered indeterminate and matches the mammogram finding. Ultrasound-guided needle biopsy is recommended. A hypoechoic circumscribed slightly lobulated mass is seen in the right breast 9 o'clock axis, 6 cm from the nipple. This may represent a lymph node. If results from the above biopsy are benign, a six-month follow-up ultrasound is recommended. IMPRESSION: 1. Indeterminate hypoechoic mass seen in the right breast 7 o'clock axis, 8 cm from the nipple. Ultrasound-guided needle biopsy is recommended. 2. Hypoechoic mass in the right breast 9 o'clock axis, 6 cm from the nipple is probably benign. If results from the above biopsy are benign, a six-month follow-up ultrasound would be recommended. ASSESSMENT: BI-RADS Category 4: Suspicious.
--- OUTSIDE RECORDS SUMMARY | 2024-12-19 13:48 | XMS_ITS | Clinical Summary ---
Author Organization [facility] Address [address] [place] [address] Care Team Providers Care Print Line Operator Name Role Phone Lidia Rice APRN Primary Care Provider [phone] Allergies Active Allergy Reactions Criticality Noted Date [...] age to complete this topic Insurance [facility] PPO Member Subscriber Plan / Payer (Ef fective 2021-Present) Name:Monserrat Vaca Relation to Subscriber:Self Name:Monserrat Vaca Payer ID:[id number] (NAIC) Group ID:[id number] Type:Not on file Address: [address] Care Teams Print Line Operator Relationship Specialty Start Date End Date Lidia Rice APRN PCP - General Internal Medicine 04/28/22
== END 2024-12-19 23:59 | disposition home or self-care (01) ==
PROVIDERS: Visit Provider Family Medicine
DX: N63.13 Unspecified lump in the right breast, lower outer quadrant (principal); N63.15 Unspecified lump in the right breast, overlapping quadrants; R92.321 Mammographic fibroglandular density, right breast; R92.8 Other abnormal and inconclusive findings on diagnostic imaging of breast
CPT/HCPCS: 76641; 77061; 77065; G0279

== ENCOUNTER 2025-01-02 07:43 | Outpatient (CLI) | payer BC, OTHER, SELFPAY ==
--- OUTSIDE RECORDS SUMMARY | 2025-01-02 07:46 | XMS_ITS | Clinical Summary ---
Author Organization [facility] Address [address] [place] [address] Care Team Providers Care Cd Reactor Operator Head Name Role Phone Lidia Rice APRN Primary Care Provider [phone] Allergies Active Allergy Reactions Criticality Noted Date [...] age to complete this topic Insurance [facility] PPO Member Subscriber Plan / Payer (Ef fective 2021-Present) Name:Monserrat Vaca Relation to Subscriber:Self Name:Monserrat Vaca Payer ID:[id number] (NAIC) Group ID:[id number] Type:Not on file Address: [address] Care Teams Cd Reactor Operator Head Relationship Specialty Start Date End Date Lidia Rice APRN PCP - General Internal Medicine 04/28/22
--- NOTE | 2025-01-02 07:47 | US_ITS ---
FINAL REPORT CLINICAL HISTORY: RT-SIDE MASS // DR.ALEX DE LA ROSA // MAMMOTOME FINDINGS: ULTRASOUND-GUIDED RIGHT BREAST CORE BIOPSY TECHNIQUE: Limited images were obtained to localize region of interest. The right breast was prepped in a routine sterile fashion and locally anesthetized with 1% lidocaine. Standard written informed consent was obtained. An 11-gauge vacuum assisted hand-held device was utilized. The needle was positioned posterior to the lesion. Multiple vacuum assisted core samples were obtained. The lesion was noted to be significantly smaller following biopsy. A biopsy marker clip was deployed in satisfactory position. Postbiopsy mammogram showed postbiopsy changes with clip in satisfactory position. Procedure was well tolerated . CONCLUSION: 1. Technically successful ultrasound guided vacuum assisted core biopsy of right breast lesion as above. 2. 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 There is no evidence of atypia or malignancy.. Pathology is concordant with mammographic findings. Recommend 6 month mammographic follow-up as routine benign postbiopsy surveillance. Authenticated and ERN
--- NOTE | 2025-01-02 09:02 | MM_ITS ---
FINAL REPORT CLINICAL HISTORY: rt breast nodule FINDINGS: MAMMOGRAM RIGHT TECHNIQUE: Standard digital 2-D views COMPARISON: Screening mammogram 12/05/2024 and diagnostic mammogram 12/19/2024 DENSITY: There are scattered areas of fibroglandular density FINDINGS: Post biopsy marker clip is noted to be in satisfactory position. Postbiopsy changes are noted. The nodule of interest located proximally 7:00 is smaller following biopsy. IMPRESSION: Biopsy marker clip in good position ASSESSMENT: A post-procedure mammogram is used to confirm the position and deployment of a breast tissue marker after a biopsy RECOMMENDATION: Given benign findings of PASH, short-term mammographic and sonographic follow-up in 6 months is recommended is normal post benign biopsy surveillance. Authenticated and ERN
== END 2025-01-02 23:59 | disposition home or self-care (01) ==
LOC: RAD 07:44
PROVIDERS: PCP Family Medicine; Visit Provider Family Medicine
DX: N62 Hypertrophy of breast (principal); N63.10 Unspecified lump in the right breast, unspecified quadrant
CPT/HCPCS: 19083; 77065; C2618

== ENCOUNTER 2025-02-10 08:03 | Emergency (ER) | payer BC, OTHER, SELFPAY ==
[2025-02-10] VITALS (8 sets, daily range): BP systolic 93–136; BP diastolic 46–75; PULSE 49–82; RESP 15–16; TEMP 36.8; O2SAT 96–99; BMI 24.7
[2025-02-10 08:13] LABS: Microscopic, Urine URINE MICROSCOPIC (MICROSCOPIC)
[2025-02-10 08:15] LABS: Coronavirus 19, PCR Not Detected (NotDetected); Influenza A, PCR Not Detected (NotDetected); Influenza B, PCR Not Detected (NotDetected)
[2025-02-10 08:34] LABS: Bilirubin,Urine Negative (Negative); Color,Urine YELLOW (Yellow); Glucose,Urine (UA) Negative (Negative); Ketones,Urine 1+ (Negative); Leukocyte Esterase,Urine 2+ (Negative); PH,Urine 6.5 (5.0-8.5); Protein,Urine TRACE (Negative); Specific Gravity, Urine 1.025 (1.005-1.030); Urobilinogen,Urine 0.2 EU/dl (0.2)
--- OUTSIDE RECORDS SUMMARY | 2025-02-10 08:35 | XMS_ITS | Clinical Summary ---
Author Organization [facility] Address [address] [place] [address] Care Team Providers Care Note Taker Name Role Phone Lidia Rice APRN Primary Care Provider [phone] Allergies Active Allergy Reactions Criticality Noted Date [...] or Tdap) 03/25/2017 03/25/2007, 08/17/1995 MAMMOGRAM 2020 INFLUENZA VACCINE 12/16/2024 Pneumococcal Vaccine 0-49 Aged Out No longer eligible based on patient's age to complete this topic Insurance [facility] Member Subscriber Plan / Payer (Ef fective 2021-Present) Name:Monserrat Vaca Relation to Subscriber:Self Name:Monserrat Vaca Payer ID:[id number] (NAIC) Group ID:[id number] Type:Not on file Address: [address] Care Teams Note Taker Relationship Specialty Start Date End Date Lidia Rice APRN PCP - General Internal Medicine 04/28/22
[2025-02-10] MEDS: ACETAMINOPHEN 500MG TAB 1000 MG PO (09:00)
[2025-02-10] MEDS: ONDANSETRON 4MG/2ML VIAL 4 MG IV (09:00)
[2025-02-10] MEDS: LACTATED RINGERS 1000ML 1,000 ML 999 ML IV (09:00)
[2025-02-10] MEDS: KETOROLAC 15MG/ML VIAL 15 MG IV (09:00)
[2025-02-10 09:08] LABS: Bacteria,Urine Trace /lpf
[2025-02-10 09:16] LABS: Hematocrit 39.9 % (37.0-47.0); Hemoglobin 13.2 g/dL (12.2-16.2); Immature Granulocytes % 0.5 %; Mean Corpuscular HGB Conc 33.1 g/dL (31.8-35.4); Mean Corpuscular Hemoglobin 29.1 pg (27.0-31.2); Mean Corpuscular Volume 88.1 fl (81-99); Nucleated Red Blood Cells % 0 %; Platelet Count 275 K/mm3 (142-424); Red Blood Count 4.53 M/mm3 (4.20-5.40); Red Cell Distribution Width-SD 41.1 fL; White Blood Count 6.5 K/mm3 (4.8-10.8)
[2025-02-10 09:20] LABS: Albumin Level 4.3 g/dl (3.5-5.0); Chloride 104 mmol/L (98-107); Sodium 138 mmol/L (136-145)
[2025-02-10 09:21] LABS: Potassium 3.9 mmoL/L (3.5-5.1)
--- NOTE | 2025-02-10 09:21 | PC.NURSE ---
pt is currently resting in bed. reports feeling better after medication
[2025-02-10 09:23] LABS: Alanine Aminotransferase 17 U/L (12-78); Anion Gap 10.9 mEq/L (5-15); Aspartate Amino Transferase 28 U/L (14-36); Blood Urea Nitrogen 9 mg/dl (7-17); Carbon Dioxide 27 mmol/L (22.0-30.0); Creatinine Clearance Estimated 108 mL/min (50-200); Creatinine,Serum 0.80 mg/dl (0.52-1.04); Estimated Glomerular Filt Rate 78 ml/min (>60); GFR (African American) 94 ML/MIN (>60)
[2025-02-10 09:24] LABS: Albumin/Globulin Ratio 1.6 (1.1-1.8); Alkaline Phosphatase 61 U/L (38-126); Bilirubin,Total 0.8 mg/dl (0.2-1.3); Calcium 9.0 mg/dl (8.4-10.2); Globulin 2.7 g/dL (1.3-3.2); Glucose 98 mg/dl (74-100); Total Protein,Serum 7.0 g/dl (6.3-8.2)
--- NOTE | 2025-02-10 10:02 | PC.NURSE ---
accompanied pt to the bathroom
[2025-02-10] MEDS: DEXAMETHASONE 4MG/ML 1ML VIAL 8 MG IV (10:28)
[2025-02-10] MEDS: PROCHLORPERAZINE 10MG/2ML VIAL 5 MG IV (10:28)
--- NOTE | 2025-02-10 11:00 | ED_ITS ---
Discharge Plan Disposition Patient Disposition: Home, Self-Care Condition: Good Prescriptions Prescriptions: No Action benzonatate [benzonatate] 100 mg capsule 100 mg PO TIDP PRN (Reason: Cough) Qty: 30 0RF ondansetron 4 mg Tablet,Disintegrating 4 mg PO Q8H PRN (Reason: Nausea) Qty: 20 0RF acetaminophen [Tylenol Extra Strength] 500 mg tablet 1,000 mg PO Q6H PRN (Reason: pain) 3 Days Qty: 20 0RF ibuprofen 600 mg tablet 600 mg PO Q6H PRN (Reason: pain) 3 Days Qty: 12 0RF lidocaine 5 % adhesive patch,medicated 1 patch topical DAILY PRN (Reason: pain) 3 Days Qty: 15 0RF Rx Instructions: leave on most painful area for up to 12 hrs cefdinir 300 mg capsule 300 mg PO BID 7 Days Qty: 14 0RF azithromycin 500 mg tablet 500 mg PO DAILY 3 Days Qty: 3 0RF Rx Instructions: start on day 2 of therapy ondansetron 4 MG tablet,disintegrating 4 mg PO TIDP PRN (Reason: Nausea) Qty: 12 0RF dicyclomine 10 MG capsule 10 mg PO TID PRN (Reason: Cramping) Qty: 15 0RF metronidazole 500 MG tablet 500 mg PO BID Qty: 14 0RF promethazine 25 mg Tablet 25 mg PO Q6H PRN (Reason: Nausea And Vomiting) Qty: 20 0RF Paxlovid 300 mg (150 mg x 2)-100 mg tablet See Rx Instructions PO .COMPLEX Qty: 30 0RF Rx Instructions: take TWO 150 mg tablets of nirmatrelvir with ONE 100 mg tablet of ritonavir twice daily for 5 days benzonatate [benzonatate] 100 mg capsule 100 mg PO TIDP PRN (Reason: Cough) Qty: 30 0RF ibuprofen [IBU] 800 mg tablet 800 mg PO Q8HP PRN (Reason: Moderate Pain) Qty: 30 0RF Referrals Follow up/Referrals: Joyce Gordon MD [Primary Care Provider, Medical] - See instructions Activity Restrictions/Add. Instructions Additional Instructions/Restrictions: You have a viral syndrome. Please return to the ER if you develop fevers unresponsive to Tylenol, neck stiffness, vision changes, neck stiffness, bloody diarrhea, or intractable diarrhea with concern for dehydration. Clinical Impressions Clinical Impression: Acute viral syndrome, Acute nonintractable headache Stand Alone Forms Stand Alone Forms: Work/School Release Print Language Print Language: Venezuelan Discharge ED Provider: Daniel Clements General Adult HPI General Chief complaint: Upper Respiratory Infection Stated complaint: Fever, V/D, headache x 1 week Time Seen by Provider: 02/10/25 08:08 Mode of Arrival: Ambulatory Source of Information: Patient Description of Symptoms (Recalled from ER Triage Doc. by RN): pt reports her whole family has covid and she has had a headache,nausea and diarrhea since thursday. pt is very tearful and worried about losing her job. was previously taking prozac but stopped about six months ago. History of Present Illness HPI narrative: This is a 44-year-old female patient, with no significant past medical history or daily medications, who is presenting to the emergency department today for evaluation of multiple viral complaints. The patient states that both of her children have been sick this week with coronavirus. She took a test earlier in the week and this test was negative. She tells me that she has had significant rhinorrhea and congestion without much of a cough. She has also had sinus pressure with headaches as well as diarrhea and nausea. No hematemesis, no hematochezia, or melena. No abdominal pain. No chest pain or shortness of breath. She has been able to tolerate oral intake. Regarding her headache, she is not having any headaches that are worse with lying flat, bending over at the waist, when coughing, or with bearing down on the toilet. No vision changes. No fevers. Related Data Previous Rx's ?Medication ?Instructions ?Recorded dicyclomine 10 mg capsule 10 mg PO TID PRN Cramping #1 5 caps 05/21/21 ondansetron 4 mg disintegrating 4 mg PO TIDP PRN Nause a #12 tabs 05/21/21 tablet metronidazole 500 mg tablet 500 mg PO BID #14 tabs 09/06 benzonatate 100 mg capsule 100 mg PO TIDP PRN Cough #3 0 caps 01/12/22 nirmatrelvir 300 mg (150 mg See Rx Instructions PO .CO MPLEX 01/12/22 x2)-ritonavir 100 mg tablet,dose #30 tabs pack (Paxlovid) promethazine 25 mg tablet 25 mg PO Q6H PRN Nausea And 01/12/22 Vomiting #20 tabs ibuprofen 800 mg tablet (IBU) 800 mg PO Q8HP PRN Moder ate Pain 01/29/22 #30 tabs benzonatate 100 mg capsule 100 mg PO TIDP PRN Cough #3 0 caps 03/12/22 ondansetron 4 mg disintegrating 4 mg PO Q8H PRN Nausea #20 tabs 03/12/22 tablet acetaminophen 500 mg tablet 1,000 mg (2 x 500 mg) PO Q 6H PRN 12/01/23 (Tylenol Extra Strength) pain 3 days #20 tabs ibuprofen 600 mg tablet 600 mg PO Q6H PRN pain 3 day s #12 12/01/23 tabs lidocaine 5 % topical patch 1 patch topical DAILY PRN pain 3 12/01/23 days #15 ea azithromycin 500 mg tablet 500 mg PO DAILY 3 days #3 t abs 01/23/24 cefdinir 300 mg capsule 300 mg PO BID 7 days #14 cap s 01/23/24 Allergies Allergy/AdvReac Type Severity Reaction Status Date / Time codeine Allergy Verified 01/29/22 17:56 Penicillins Allergy Verified 01/29/22 17:56 [facility] Disclaimer: The information contained in this section may have been updated after the patient was seen, as this information can be updated by other users. Social History Smoking Status: Current every day smoker tobacco type: cigarettes packs per day: 1 second hand exposure: No alcohol intake: never substance use type: denies use current occupational status: other Travel in the last 8 weeks?: None household members: other housing: other Have you lived/traveled outside [place] in past 30 days?: No Contact w/someone who lives/traveled outside US past 30 days?: No Exposure to someone with infectious disease in past 14 days?: No Do you have a fever (greater than 100.4 F or 38 C)?: Yes Have you tested positive for COVID-19?: No Exposed to someone with COVID-19 in past 14 days?: No Do you have a sore throat?: No Do you have a cough?: No Do you have any weakness?: No Do you have any diarrhea?: Yes Are you experiencing any unusual bleeding?: No Do you have any muscle aches/pain?: No Do you have any abdominal pain?: Yes Are you experiencing loss of taste or smell?: No Other Medical History Have you received the Flu Vaccine for this season: No Have you received the Pneumonia Vaccine: No ROS Obtained: Yes Systems reviewed as appropriate & no additional complaints except as documented Physical Exam General General appearance: other (See MDM) Respiratory Respiratory exam: Present other (See MDM) Cardiovascular Cardiovascular exam: Present other (See MDM) Neurological Exam Neurological exam: Present other (See MDM) Medical Decision Making Medical Records Medical records reviewed: Yes I reviewed the patient's medical records. Screening: Per USPSTF and CDC recommendations, given the prevalence of disease in our region, it is our hospital?s policy to screen for HIV and viral Hepatitis for all patients aged 18 and over and those with ongoing risk factors. Yasir Inquiry Pt receiving controlled substance: No Yasir was queried for this patient: No Vital Signs: 02/10/25 08:09 02/10/25 08:13 02/10/25 08:45 Temperature 98.3 F Temperature Source Oral Pulse Rate 82 60 Pulse Rate [Right] 54 L Respiratory Rate 15 Blood Pressure 136/75 136/75 Blood Pressure [Right Arm] 135/75 Blood Pressure Mean Blood Pressure Mean [Right Arm] 95 02 Sat by Pulse Oximetry 98 97 96 Oxygen Delivery Method Room Air 02/10/25 09:07 02/10/25 09:30 02/10/25 10:00 Temperature Temperature Source Pulse Rate 56 L 56 L 74 Pulse Rate [Right] Respiratory Rate Blood Pressure 93/46 L 93/46 L 93/46 L Blood Pressure [Right Arm] Blood Pressure Mean Blood Pressure Mean [Right Arm] 02 Sat by Pulse Oximetry 97 97 99 Oxygen Delivery Method 02/10/25 10:08 Temperature Temperature Source Pulse Rate Pulse Rate [Right] Respiratory Rate Blood Pressure 100/49 L Blood Pressure [Right Arm] Blood Pressure Mean 66 Blood Pressure Mean [Right Arm] 02 Sat by Pulse Oximetry Oxygen Delivery Method Lab Data Lab Results 02/10/25 08:10: Urine Color Yellow, Urine Appearance Sl cloudy, Urine pH 6.5, Ur Specific [place] 1.025, Urine Protein Trace, Urine Glucose (UA) Negative, Urine Ketones 1+, Urine Blood 2+ A, Urine Nitrate Negative, Urine Bilirubin Negative, Urine Urobilinogen 0.2, Ur Leukocyte Esterase 2+ A, Urine RBC 5-10, Urine WBC 10-20, Ur Squamous Epith Cells 10-20, Urine Bacteria Trace 02/10/25 08:11: SARS-CoV-2 (PCR) Not detected, Influenza A Untype (PCR) Not detected, Influenza Type B (PCR) Not detected 02/10/25 09:10: WBC 6.5, RBC 4.53, Hgb 13.2, Hct 39.9, MCV 88.1, MCH 29.1, MCHC 33.1, RDW 12.6, Plt Count 275, MPV 10.6 H, Neut % (Auto) 63.3, Lymph % (Auto) 25.8, [place] % (Auto) 8.2, Eos % (Auto) 1.4, Baso % (Auto) 0.8, Neut # (Auto) 4.1, Lymph # (Auto) 1.7, [place] # (Auto) 0.5, Eos # (Auto) 0.1, Baso # (Auto) 0.1, Sodium 138, Potassium 3.9, Chloride 104, Carbon Dioxide 27, Anion Gap 10.9, BUN 9, Creatinine 0.80, Estimated Creat Clear 108, Estimated GFR 78, Est GFR ( Amer) 94, Glucose 98, Calcium 9.0, Total Bilirubin 0.8, AST 28, ALT 17, Alkaline Phosphatase 61, Total Protein 7.0, Albumin 4.3, Globulin 2.7, Albumin/Globulin Ratio 1.6 02/10/25 09:10 02/10/25 09:10 Orders (Tests/Meds): ED MEDICATIONS Discontinued Medications Generic Name Dose Route Start Last Admin Trade Name Cedric PRN Reason Stop Dose Admin Acetaminophen 1,000 mg 02/10/25 08:22 02/10/25 09:00 Acetaminophen 500mg Tab PO 02/10/25 08:23 1,000 mg ONCE ONE Administration Dexamethasone Sodium Phosphate 8 mg 02/10/25 10:08 02/10/25 10:28 Dexamethasone 4mg/Ml 1ml Vial IV 02/10/25 10:09 8 mg ONCE ONE Administration Diphenhydramine HCl 25 mg 02/10/25 10:08 02/10/25 10:28 Diphenhydramine 50mg/Ml Vial IV 02/10/25 10:09 25 mg ONCE ONE Administration Lactated Ringer's 1,000 mls @ 999 mls/hr 02/10/25 08:22 02/10/25 09:00 Lactated Ringer's 1000 Ml Bag IV 02/10/25 09:22 999 mls/hr .Q1H1M ONE Administration Ketorolac Tromethamine 15 mg 02/10/25 08:22 02/10/25 09:00 Ketorolac 15mg/Ml Vial IV 02/10/25 08:23 15 mg ONCE ONE Administration Ondansetron HCl 4 mg 02/10/25 08:22 02/10/25 09:00 Ondansetron 4mg/2ml Vial IV 02/10/25 08:23 4 mg ONCE ONE Administration Prochlorperazine Edisylate 5 mg 02/10/25 10:08 02/10/25 10:28 Prochlorperazine 10mg/2ml Vial IV 02/10/25 10:09 5 mg ONCE ONE Administration ORDERS Category Date Time Status CBC w/Auto Diff [Complete Blood Count Auto Diff] Stat Lab 02/10/25 09:10 Completed CMP [Comprehensive Metabolic Panel] Stat Lab 02/10/25 09:10 Completed HIV Combo Stat Lab 02/10/25 09:10 Received Hepatitis C Ab Qual. W/ RFX Stat Lab 02/10/25 09:10 Received Rapid PCR Covid and Flu A/B Stat Lab 02/10/25 08:11 Completed UA [Urinalysis and Microscopic] Stat Lab 02/10/25 08:10 Completed Urine Culture Stat Micro 02/10/25 08:10 Received Medical Decision Narrative: In summary, this is a 44-year-old female patient who is presenting to the emergency department today with multiple complaints consisting of rhinorrhea, congestion, headaches, and diarrhea. Bowel movements are nonbloody and she is not experiencing melena. No abdominal pain. This patient has no comorbidities that would complicate their medical management or care. On initial evaluation of the patient they were resting comfortably in no acute distress and nontoxic in appearance. They are hemodynamically stable, saturating well room air, and are neurologically intact. On physical examination the patient her oropharynx is clear. Heart and lungs are clear to auscultation bilaterally. She is not having no evidence of photophobia. Cranial nerves II through XII are intact. No abnormal neurologic findings on exam. Abdomen is soft and nontender. She does have rhinorrhea and congestion noted bilaterally. Differential diagnosis includes COVID, flu, RSV, among others. I have considered the possibility of infectious enteritis, but she is not having any evidence of hemorrhagic diarrhea so I do not feel that a GI PCR would change her management at this time. Additionally, with her diarrhea we will assess basic labs to ensure that she has not developed an acute kidney injury. Regarding her headache, she has no nuchal rigidity, photophobia, vision changes, or fevers to suggest meningitis. She has no cranial nerve deficits and no symptoms that would be consistent with increased intracranial pressure to suggest spontaneous intracranial hemorrhage or cerebral venous thrombus Workup was initiated with hematologic labs as well as a mini viral respiratory panel. Labs personally interpreted by me demonstrate no electrolyte derangement or acute kidney injury. No leukocytosis. Urinalysis was ordered via advanced nursing protocol. This was significant for 2+ leukocyte esterase, 5-10 red blood cells, and 10-20 white blood cells and trace bacteria. She has 10-20 squamous epithelial cells, suggestive of contamination. The patient is not currently having any urinary symptoms so we will follow-up the culture before treating. We have treated the patient's headache in the emergency department with 1 L of lactated Ringer's, 15 mg of Toradol, 4 mg of Zofran, 1 g of Tylenol, 8 mg of dexamethasone, 5 mg of Compazine, and 25 mg of Benadryl. On repeat reassessment she feels that she has significantly improved and her symptoms have resolved. At this time I feel that she is stable for discharge home. I have given strict return precautions in the event that she develops symptoms of intracranial hypertension, vision changes, neck stiffness, fevers, or intractable nausea, vomiting, and diarrhea. at this time all questions have been answered and all parties are agreeable with the decision to discharge Critical Care Critical Care Time Critical Care Time: No
[2025-02-10 11:21] LABS: Hepatitis C Ab Qual. W/ RFX NEGATIVE (Negative)
== END 2025-02-10 11:17 | disposition home or self-care (01) ==
PROVIDERS: Emergency Provider Student in an Organized Health Care Education/Training Program; PCP Family Medicine
DX: R51.9 Headache, unspecified (principal); R11.0 Nausea; R19.7 Diarrhea, unspecified; R09.81 Nasal congestion
CPT/HCPCS: 80053; 81001; 85025; 86803; 87086; 87389; 87636; 96361; 96374; 96375; 99284; J0780; J1100; J1200; J1885; J2405; J7120

== ENCOUNTER 2025-04-10 14:13 | Outpatient (CLI) | payer BC, OTHER, SELFPAY ==
--- NOTE | 2025-04-10 14:15 | CA_ITS ---
APPROVED REPORT EXAM: Comprehensive 2D, Doppler, and color-flow Echocardiogram [place]erry Engineer: Alondra Gomes RVT Ht: 5 ft 9 in Wt: 178lbs BSA: 1.97 BP: 136/75 mmHg Indications: DYSPENA ON EXERTION 2D Dimensions LA Volume 22.90 mL LA Volume Index 11.62 mL/m2 (M/F) 16-34 M-Mode Dimensions RVDd 2.16 cm (0.9-2.6) LA Diam 3.09 cm (1.9-4.0) LVDd 4.32 cm (3.5-5.7) LVDs 2.54 cm (3.5-5.7) IVSd 1.22 cm (0.6-1.1) PWd 0.47 cm (0.6-1.1) EF (Teich) 72.40% FS 41.20% EDV (Teich) 84.00 mL TAPSE 2.17 (<1.7) ESV (Teich) 23.20 mL LV Diastology E Decel Time 150 (160-240 msec) E/A Ratio 1.3 Aortic Valve LILLY Index 1.41 cm2/m2 AoV Peak Trevon. 116.0 (50-130 cm/s) AO Peak GR. 5.40 mmHg AO Mean GR. 3.00 (<5 mmHg) AO VTI 26.0 (18-25 cm) LILLY (VTI) 2.83 (2.5-4.5 cm2) Mitral Valve MV E Max Trevon. 75.0 (40-130 cm/s) MV A Velocity 60.0 (40-130 cm/s) E/A Ratio 1.26 MV PHT 44.0 ms Pulmonary Valve PV Peak Velocity 82.0 (50-150 cm/s) Left Ventricle The left ventricle is normal size. Left ventricular systolic function is normal. The left ventricular ejection fraction is within the normal range. There is normal left ventricular wall thickness. There is normal LV segmental wall motion. The left ventricular diastolic function is normal. LVEF is 55% Right Ventricle The right ventricle is normal size. The right ventricular systolic function is normal. Atria The left atrium size is normal. The right atrium size is normal. There is no color Doppler evidence of interatrial shunt. Aortic Valve The aortic valve opens well. There is no hemodynamically significant aortic valvular stenosis. No aortic regurgitation is present. Mitral Valve The mitral valve is normal in structure. No evidence of mitral valve stenosis. Trace mitral regurgitation is present. Tricuspid Valve The tricuspid valve leaflets are thin and pliable. Trace tricuspid regurgitation. There is insufficient TR jet to estimate RVSP. Pulmonic Valve The pulmonary valve is grossly normal in structure. Trace pulmonic valve regurgitation is present. Great Vessels The aortic root is normal in size. IVC is normal in size and collapses >50% with inspiration. Pericardium There is no pericardial effusion. Other Information Study Quality: Fair Conclusion Normal biventricular systolic function. No significant valvular stenosis or regurgitation. Electronically signed by : Janna Kapoor MD 04/17/2025 22:30:19
--- OUTSIDE RECORDS SUMMARY | 2025-04-10 14:23 | XMS_ITS | Clinical Summary ---
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
== END 2025-04-10 23:59 | disposition home or self-care (01) ==
LOC: RT 14:14
PROVIDERS: PCP Family Medicine; Visit Provider Nurse Practitioner
DX: R06.02 Shortness of breath (principal)
CPT/HCPCS: 93306